=== PATIENT | female | born 1975 | race Caucasian/White ===

== ENCOUNTER 2020-02-28 10:25 | Outpatient (CLI) | payer OTHER, SELFPAY ==
--- NOTE | ~2020-02-28 | XR_ITS ---
XR barium swallow DATE: 02/28/2020 11:11 INDICATION: Dysphagia. Esophageal motility disorder. TECHNIQUE: Fluoroscopy and rapid sequence spot radiographs of the esophagus during swallowing. 2.3 minutes fluoroscopy time 13.757 DAP COMPARISON: None FINDINGS: There is normal deglutition. No stricture, mucosal fold thickening, ulceration, intraluminal mass lesion or diverticulum of the es ophagus. Small sliding hiatal hernia. With the patient recumbent there are tertiary contractions of the esophagus and ineffective to and f ro propulsion of the contrast material, consistent with history of esophageal motility disorder. IMPRESSION: Esophageal motility disorder with ineffective to and fro limited movement of contrast mat erial and tertiary contractions in the recumbent position Small sliding hiatal hernia Reviewed, dictated and finalized at [facility] Reviewed, dictated and finalized at [facility]. IMPRESSION: Esophageal motility disorder with ineffective to and fro limited mo vement of contrast material and tertiary contractions in the recumbent position Small sliding hiatal hernia
== END 2020-02-28 10:26 | disposition home or self-care (01) ==
LOC: ANHIMG 10:34
PROVIDERS: PCP Family Medicine; Visit Provider Internal Medicine Gastroenterology
DX: R13.10 Dysphagia, unspecified (principal); K44.9 Diaphragmatic hernia without obstruction or gangrene; K22.8 Other specified diseases of esophagus
CPT/HCPCS: 74220

== ENCOUNTER 2024-01-18 11:29 | Outpatient (CLI) | payer OTHER, SELFPAY ==
[2024-01-18 12:23] LABS: Basophils Absolute Auto 0.1 K/mm3 (0.0-0.1); Basophils Percent Auto 1.3 % (0.2-1.2); Eosinophils Absolute Auto 0.5 K/mm3 (0-0.3); Hematocrit 33.6 % (37.0-47.0); Hemoglobin 9.5 g/dL (12.0-15.0); Immature Granulocyte Absolute 0.01 K/mm3 (0.00-0.031); Immature Granulocyte Percent A 0.2 % (0-0.5); Lymphocytes Absolute Auto 1.94 K/mm3 (0.9-3.2); Mean Corpuscular HGB Conc 28.3 g/dl (32-36); Mean Corpuscular Hemoglobin 21.1 pg (26-34); Mean Corpuscular Volume 74.5 fl (80-100); Mean Platelet Volume 9.9 fl (7.4-10.4); Monocytes Absolute Auto 0.3 K/mm3 (0.1-0.6); Monocytes Percent Auto 5.7 % (2.6-8.5); Neutrophils Absolute Auto 2.5 K/mm3 (1.3-6.7); Neutrophils Percent Auto 46.8 % (45.5-73.1); Platelet Count Result 290 k/mm3 (150-375); Red Blood Count 4.51 M/mm3 (4.2-5.4); Red Cell Distribution Width 16.4 % (11.5-14.5); White Blood Count 5.2 K/mm3 (4.5-10.0)
[2024-01-18 12:54] LABS: Anisocytosis 1+; Hypochromasia 1+; Microcytosis 1+ (NORMAL); Platelet Estimate Adequate (Adequate); Schistocytes Rare
== END 2024-01-18 11:30 | disposition home or self-care (01) ==
PROVIDERS: Visit Provider Obstetrics & Gynecology
DX: Z01.818 Encounter for other preprocedural examination (principal); D25.9 Leiomyoma of uterus, unspecified
CPT/HCPCS: 36415; 85025; 86850; 86900; 86901

== ENCOUNTER 2024-01-22 00:27 | Day surgery (SDC) | payer OTHER, SELFPAY ==
--- NOTE | 2024-01-15 15:35 | SUR.PREOP ---
Report to the Outpatient Waiting Room, entrance under the green pavilion located off [facility], at time 0730 on date 01/22/24. Planned Procedure Time: 0930.? Time changes happen often and if your time is changed the preop area will call you the afternoon before. - You and your visitor will be asked to self-screen and do not enter if you have any COVID symptoms. Please call surgeon if you need to reschedule. - A mask is optional within the hospital at this time. Patients may have clear liquids (water, carbonated beverages, clear teas, apple juice) until 3 hours prior to surgery with a maximum of 20 ounces. - No food from midnight until time of surgery and no smoking Take only the following medications with a SIP of water on the morning of surgery: MAY TAKE LEVOTHYROXINE, BACLAFEN, GABAPENTIN, AND EYE DROPS IF NEEDED DO NOT STOP ANY OF YOUR OTHER PRESCRIPTION MEDICATIONS PRIOR TO SURGERY EXCEPT THE FOLLOWING Medications to discontinue per physician PT STATED THAT DR SWIFT ASKED HER TO STOP ASPERIN 81, PLEASE FOLLOW DR MICHAEL INSTRUCTIONS. Date to take last dose PER DR MICHAEL OFFICE FOR ASPERIN 81 Please no make-up, nail congolese, hairspray, perfume, deodorant, or body powder the day of surgery.? No jewelry (including any body piercings) or valuables the day of surgery, leave them at home.? Please take a shower or bath the night before, or the morning of, surgery with an antibacterial soap.? Wear comfortable, loose fitting clothing.? Children are encouraged to wear pajamas. - Jewelry must be removed prior to entering the operating room.? Rings and piercings that are not removed may be cut off. - The hospital will not accept responsibility for valuables.? - Please leave all valuables, including medications, at home the day of surgery. If you are going home after surgery, a licensed emergency medical technician/driver must drive you home.? - NO public transportation without another adult if you receive anesthesia. - We recommend that an adult stay with you for 24 hours following discharge. - We also recommend that you do not drive, make important decision, drink alcoholic beverages, or take any drugs that were not prescribed by your health care provider for at least 24 hours after your discharge time. Follow any additional instructions given to you from your surgeon. Telephone instructions given to ANGEL FABIAN and asked if any additional questions and then verbalized understanding. Patient advised to call surgeon office or pre surgery nurse liaison [phone] if any additional questions.
[2024-01-15 16:12] VITALS: BMI 34.8
--- NOTE | 2024-01-19 13:22 | PM.IMHP ---
H&P: HPI History of Present Illness Date/Time: 01/19/24 13:22 Chief Complaint: Pelvic pain/uterine fibroids/excessive heavy bleeding Narrative: 48-year-old female with known fibroids and severe pelvic pain excessive irregular bleeding refractory to medical therapy admitted for robotic hysterectomy bilateral salpingectomy. Risks and benefits reviewed including but not exclusive of , aspiration pneumonia, bleeding, transfusion, perforation injury to bowel, bladder, ureters, or other internal organs with need for open laparotomy. She received the [employer] handout entitled hysterectomy as well as the [place] [facility] handout. She had all questions answered. She asked to proceed PMF Past Medical History Medical History Arthritis Depression GERD (gastroesophageal reflux disease) Obesity Peripheral neuropathy Social History Social History Smoking status: Never smoker Alcohol intake: current Living arrangements: with family Meds Home Medications and Allergies Home Medications Medication Instructions Recorded Confirmed Type aspirin 81 mg tablet,delayed 81 mg PO DAILY 01/15/24 01/15/24 History release baclofen 10 mg tablet 10 mg PO BID 01/15/24 01/15/24 History diclofenac sodium 1 % topical gel 1 inch topical PRN PRN Inflammation 01/15/24 01/15/24 History fluticasone propionate 50 50 mcg intranasal POST-TRANSFUSION 01/15/24 01/15/24 History mcg/actuation nasal spray,suspension gabapentin 300 mg capsule 300 mg PO TID 01/15/24 01/15/24 History gabapentin 600 mg tablet 600 mg PO TID 01/15/24 01/15/24 History levothyroxine 75 mcg tablet 75 mcg PO DAILY 01/15/24 01/15/24 History lifitegrast 5 % eye drops in a 1 drp EACH EYE DAILY 01/15/24 01/15/24 History dropperette (Xiidra) prednisolone acetate 1 % eye 1 drp EACH EYE DAILY 01/15/24 01/15/24 History drops,suspension Allergies Allergy/AdvReac Type Severity Reaction Status Date / Time morphine [From Astramorph-PF] Allergy Unknown Vomiting Verified 01/15/24 14:57 Exam Const: General: cooperative, healthy appearing, comfortable and overweight Orientation/consciousness: oriented to person, oriented to place and oriented to time HENMT: Head: normal to inspection Resp: Effort & Inspection: normal respiratory effort Cardio: Rate: regular rate Rhythm: regular rhythm Heart sounds: S1 normal heart sound present and S2 normal heart sound present GI: Inspection: normal to inspection : External Female Exam: normal external appearance Speculum Exam - Vagina: normal appearance of the vagina Speculum Exam - Cervix: normal appearance of the cervix Bimanual exam- vagina & uterus: enlarged and Uterine tenderness Bimanual Exam- Adnexa, other: normal adnexae Assessment and Plan Assessment and plan (1) Enlarged uterus: Code(s): N85.2 - Hypertrophy of uterus Status: Acute (2) Uterine fibroid: Code(s): D25.9 - Leiomyoma of uterus, unspecified Status: Acute (3) Excessive bleeding: Code(s): R58 - Hemorrhage, not elsewhere classified Status: Acute Assessment and Plan: Robotic total vaginal hysterectomy and bilateral salpingectomy
[2024-01-22] VITALS (10 sets, daily range): BP systolic 102–122; BP diastolic 49–75; PULSE 68–100; RESP 12–18; TEMP 36.3–36.7; O2SAT 91–100; BMI 35.4
--- NOTE | 2024-01-22 06:41 | WPDHPUPDATE1 ---
History and Physical Update Update Date/Time: 01/22/24 06:41 History and Physical has been reviewed, including an updated exam of the patient. There are NO changes in the patient's condition. Risks, benefits, and alternatives have been discussed and questions answered. Patient agrees to proceed with procedure.
--- NOTE | 2024-01-22 07:30 | P.PNAN_ITS ---
Anes - Initial Pre Proc Eval Procedure: Operation Date: 01/22/24 09:30 Proposed Procedures p Robotic Assisted Total Vaginal Hysterectomy, Bilateral Salpingectomy - Moises Pearson MD Date/Time: 01/22/24 07:30 Surgeon: Moises Pearson MD Pre Op Diagnosis: uterine fibroids, pelvic pain, dysmennorhea Patient Data Age: 48 Gender: F Height: 1.59 m Weight: 88.45 kg Allergies Allergy/AdvReac Type Severity Reaction Status Date / Time morphine [From Astramorph-PF] Allergy Unknown Vomiting Verified 01/22/24 07:52 Home Medications Medication Instructions Recorded Confirmed Type aspirin 81 mg tablet,delayed 81 mg PO DAILY 01/15/24 01/22/24 History release baclofen 10 mg tablet 10 mg PO BID 01/15/24 01/22/24 History diclofenac sodium 1 % topical gel 1 inch topical PRN PRN Inflammation 01/15/24 01/15/24 History fluticasone propionate 50 50 mcg intranasal POST-TRANSFUSION 01/15/24 01/15/24 History mcg/actuation nasal spray,suspension gabapentin 300 mg capsule 300 mg PO TID 01/15/24 01/22/24 History gabapentin 600 mg tablet 600 mg PO TID 01/15/24 01/15/24 History levothyroxine 75 mcg tablet 75 mcg PO DAILY 01/15/24 01/22/24 History lifitegrast 5 % eye drops in a 1 drp EACH EYE DAILY 01/15/24 01/15/24 History dropperette (Xiidra) prednisolone acetate 1 % eye 1 drp EACH EYE DAILY 01/15/24 01/15/24 History drops,suspension hydrocodone 5 mg-acetaminophen 325 1 tablet PO Q4H PRN pain #30 tabs 01/22/24 Rx mg tablet Patient hx anesthesia problems: none Family hx anesthesia problems: none Results Review: All pre-operative results and documents have been reviewed as part of the pre- operative evaluation. [facility] Past Medical History Medical History (Updated 01/22/24 @ 07:31 by Bro Richmond DO) Arthritis CVA (cerebral vascular accident) left hand weakness - 01/2022 Depression GERD (gastroesophageal reflux disease) Obesity Peripheral neuropathy Surgical History Surgical History (Updated 01/22/24 @ 07:31 by Bro Richmond DO) S/P patent foramen ovale closure Social History Social History Smoking status: Never smoker Alcohol intake: current Living arrangements: with family Esau Mercer Final PreProcedure Day of Procedure 01/22/24 07:30 Patient weight: obese Heart: regular rate and rhythm Lungs: clear to auscultation Airway: Mallampati scale class II Neurological: alert and oriented Last oral intake: >/= 8 hours ASA classification: III Emergent: no Anesthetic plan: proceed Anesthesia type and monitoring: general ETT and standard monitoring Results Review: All pre-operative results and documents have been reviewed as part of the pre-operative evaluation. Informed Consent: The patient's anesthetic plan and its attendant risks and benefits were discussed with the patient/family/POA. Questions were solicited and answers provided to the satisfaction of the patient/family/POA.
[2024-01-22] MEDS: LACTATED RINGERS 1,000 ML 30 ML IV CONT ×2 (08:25→11:29)
[2024-01-22] MEDS: ACETAMINOPHEN 500 MG TABLET 1000 MG PO (08:33)
[2024-01-22] MEDS: KETOROLAC 15 MG/ML VIAL (*BKC) IV PUSH (08:34)
[2024-01-22] MEDS: ceFAZolin 2 GM/D5W 50 ML 2 GM/50 ML BAG IVPB (09:05)
--- NOTE | 2024-01-22 10:07 | W.PM.PROC2 ---
Procedure Note - Detailed Date of Procedure 01/22/24 Pre-op Diagnosis uterine fibroids, pelvic pain, dysmennorhea Post-op Diagnosis Same Procedure Performed robotic total vaginal directly bilateral salpingectomy Surgeon Moises Pearson MD Anesthesia General Indications 48-year-old female with excessive heavy bleeding and pelvic pain Findings enlarged uterus. Tubes status post tubes with tubal ligation. Normal-appearing ovaries Description of Procedure the patient was prepped draped normal sterile fashion placed in dorsal lithotomy position. Excellent general trach anesthesia weighted speculum placed in posterior fornix vagina. Anterior lip of the cervix grasped with single-tooth tenaculum. Uterus sounded to 12cm. Serial dilatation with fragmented dilators performed followed by passes the 10. JESS and the 2. 0.5 cold cup. Next the 16 Romanian catheter placed in bladder draining clear urine. The weighted speculum the single-tooth removed and the gloves were changed. A suprapubic the local incision made the Veress needle passed in the abdomen. Abdomen filled with CO2 gas 15mmHg. The 8mm trocar advanced in the abdomen. Downside visualized. No injury seen. Gas reattached. Patient placed in Trendelenburg. Right left lateral quadrant incisions made. 8Mm trocars advanced under direct visualization assuring no injury. The right upper quadrant incision made the 8mm trocar advanced under direct visualization assuring no injury. The robot was docked. Attention was turned the counseling case manager. Anteriorly the left round ligament was grasped, burned, cut. Anterior bladder flap formed by sharply dissecting peritoneum and reflecting bladder caudally away from the cervix uterus the opposite which was clamped burned cut. Next the fallopian tube was were noted to be bisected bilaterally. The proximal stump was sharply dissected away left attached to its origin. The distal portion was incised passed off through the right upper quadrant port. A similar fashion on the right the fallopian tube was sharply dissected away from the ovary. The distal portion passed off to the right upper quadrant proximal portion left attached to utero-ovarian ligament on left was skeletonized to conserve left ovary. This was clamped burned, cut brought to the level previously cut round ligament. A similar fashion conserving the right ovary, the right utero-ovarian ligament was clamped, burned, cut and brought to the level of previously cut round ligament. The cardinal broad ligaments were skeletonized on the left clamping burning cutting and hugging the sub cervix uterus until the large tortuous veins could be an vessels were seen on the left. These were individually clamped, burned, cut. In similar fashion on the right the cardinal broad ligaments were serially skeletonized clamping burning cutting and until the uterine vessels could be seen on the right these vessels were then clamped, burned, cut. Blanching the uterus was noted and a colpotomy incision made. Cervix uterus and tubes removed through the vagina. The vagina then closed with continuous running 0V lock from lateral edge to lateral edge back to midline. Irrigation undertaken to clear and hemostasis was assured the raw surface areas sprinkled with Montgomery term. The robot was undocked. The gas removed from the abdomen. The upper the trocars removed the incisions closed with 4 Monocryl glue. Patient was awakened went to recovery in satisfactory condition. All sponge, needle, instrument counts were correct. There were no immediate complications Estimated Blood Loss 25 Drains No Packing No Pathology Yes Complications No immediate complications Condition Stable Disposition PACU
--- NOTE | 2024-01-22 10:13 | PM.DS ---
DS: Admitting Diagnosis Discharge Date 01/23/2024 Admitting Diagnosis excessive bleeding/ enlarged uterus/uterine fibroid DS: Discharge Diagnosis Discharge Diagnosis (1) Excessive bleeding: Code(s): R58 - Hemorrhage, not elsewhere classified Status: Acute (2) Uterine fibroid: Code(s): D25.9 - Leiomyoma of uterus, unspecified Status: Acute (3) Enlarged uterus: Code(s): N85.2 - Hypertrophy of uterus Status: Acute DS: Summary Hospital Course Reason for hospitalization: patient was admitted for robotic hysterectomy and bilateral salpingectomy on 01/22/2024. Hospital Course: The patient's hospital course. Remained afebrile she was up, voiding without difficulty eating regular ambulating, generally without complaints. Time Spent with Patient Time attestation: Total time spent providing and/or coordinating discharge services: Exam Const: General: cooperative, healthy appearing and comfortable Nutritional Appearance: average body habitus Orientation/consciousness: oriented to person, oriented to place and oriented to time Resp: Effort & Inspection: normal respiratory effort Cardio: Rate: regular rate Rhythm: regular rhythm Heart sounds: S1 normal heart sound present and S2 normal heart sound present GI: Inspection: normal to inspection and incision ( Clean dry and intact) DS: Data Data Completed and Pending Pending studies at discharge: Pending at discharge 01/22/24 09:35 Surgical [PTH] Routine Discharge Plan Discharge Patient Disposition: Home, Self-Care Stand Alone Forms: General Discharge Instructions Follow-up/Referrals: Moises Velarde MD [Physician] - Discharge Medications: New hydrocodone-acetaminophen 5-325 mg tablet 1 tablet PO Q4H PRN (Reason: pain) Qty: 30 0RF No Action gabapentin 600 mg tablet 600 mg PO TID aspirin 81 mg tablet,delayed release (DR/EC) 81 mg PO DAILY levothyroxine 75 mcg tablet 75 mcg PO DAILY prednisolone acetate 1 % drops,suspension 1 drp EACH EYE DAILY baclofen 10 mg tablet 10 mg PO BID gabapentin 300 mg capsule 300 mg PO TID fluticasone propionate 50 mcg/actuation spray,suspension 50 mcg INTRANASAL POST-TRANSFUSION Xiidra 5 % dropperette 1 drp EACH EYE DAILY diclofenac sodium 1 % gel 1 inch TOPICAL PRN PRN (Reason: Inflammation)
[2024-01-22] MEDS: fentaNYL CITRATE INJ (*CRX) 100 MCG/2 ML VIAL 25 MCG IV PUSH ×5 (10:58→11:16)
[2024-01-22] MEDS: IBUPROFEN 600 MG TABLET PO ×2 (12:36→23:38)
[2024-01-22] MEDS: SIMETHICONE 80 MG TAB.CHEW PO ×2 (12:36→16:41)
[2024-01-22] MEDS: DEXTROSE 5%/LACTATED RINGERS 1,000 ML 125 ML IV CONT (12:37)
[2024-01-22] MEDS: HYDROcodone/acetaminophen (*CRX) 5-325 MG TABLET 1 TAB PO ×2 (12:37→16:42)
[2024-01-22] MEDS: DOCUSATE SODIUM 100 MG CAPSULE PO (16:41)
[2024-01-22] MEDS: HYDROcodone/acetaminophen (*CRX) 10-325 MG TABLET 1 TAB PO ×2 (19:35→23:38)
[2024-01-23 04:50] VITALS: BP 106/53; PULSE 69; RESP 16; TEMP 36.8; O2SAT 99
[2024-01-23] MEDS: HYDROcodone/acetaminophen (*CRX) 5-325 MG TABLET 1 TAB PO ×2 (04:50→08:22)
[2024-01-23 04:59] LABS: Basophils Percent Auto 0.3 % (0.2-1.2); Hematocrit 30.5 % (37.0-47.0); Hemoglobin 9.2 g/dL (12.0-15.0); Immature Granulocyte Absolute 0.05 K/mm3 (0.00-0.031); Immature Granulocyte Percent A 0.4 % (0-0.5); Lymphocytes Absolute Auto 0.83 K/mm3 (0.9-3.2); Lymphocytes Percent Auto 7.4 % (18.3-44.2); Mean Corpuscular HGB Conc 30.2 g/dl (32-36); Mean Corpuscular Hemoglobin 22.3 pg (26-34); Mean Platelet Volume 9.6 fl (7.4-10.4); Monocytes Absolute Auto 0.4 K/mm3 (0.1-0.6); Monocytes Percent Auto 3.4 % (2.6-8.5); Neutrophils Percent Auto 88.5 % (45.5-73.1); Platelet Count Result 281 k/mm3 (150-375); Red Blood Count 4.12 M/mm3 (4.2-5.4); Red Cell Distribution Width 16.5 % (11.5-14.5); White Blood Count 11.3 K/mm3 (4.5-10.0)
[2024-01-23 05:22] LABS: Anisocytosis 1+; Hypochromasia 1+; Microcytosis 1+ (NORMAL); Ovalocytes 1+; Platelet Estimate Adequate (Adequate); Schistocytes Rare
[2024-01-23] MEDS: LEVOTHYROXINE SODIUM 75 MCG TABLET PO (06:38)
[2024-01-23] MEDS: ONDANSETRON INJ 4 MG/2 ML VIAL IV PUSH (06:48)
[2024-01-23 07:00] VITALS: BP 102/52; PULSE 62; RESP 16; TEMP 36.4; O2SAT 100
[2024-01-23] MEDS: SIMETHICONE 80 MG TAB.CHEW PO (08:22)
[2024-01-23] MEDS: DOCUSATE SODIUM 100 MG CAPSULE PO (08:22)
[2024-01-23] MEDS: IBUPROFEN 600 MG TABLET PO (08:22)
[2024-01-23] MEDS: ENOXAPARIN 40 MG/0.4 ML SYRINGE SUB-Q (08:22)
--- NOTE | 2024-01-23 09:56 | WPDPN ---
Progress Note: A&P Assessment and Plan (1) Status post vaginal hysterectomy: Code(s): Z90.710 - Acquired absence of both cervix and uterus Status: Acute (2) Post-op pain: Code(s): G89.18 - Other acute postprocedural pain Status: Acute Plan Discharge home today. Subjective Date/time seen: 01/23/24 09:13 Interval history: Liliana is postop day 1 from total laparoscopic assisted vaginal hysterectomy. She was doing well. Tolerating a regular diet without nausea. Denies dizziness with ambulation. Reports very small amount light pink discharge. Denies having any vaginal clots. pain well controlled with p.o. medications. Review of Systems Review of Systems: All systems reviewed & are unremarkable except as noted in HPI and below Exam Const: General: cooperative, no acute distress and awake Orientation/consciousness: patient oriented x3 Limitations: no limitations Eyes: General: appearance normal, both eyes and all related structures Neck: Neck: supple Resp: Effort & Inspection: normal respiratory effort and able to speak in complete sentences Auscultation: clear to auscultation bilaterally Cardio: Rate: regular rate Peripheral pulses: Peripheral pulses 2+ throughout GI: Inspection: normal to inspection Auscultation: normal bowel sounds : General: Yes bladder normal to palpation Skin: General skin exam: normal color Other: Incisions C/D/I Neuro: General: patient oriented x3 Cognition (Neuro): normal cognition Speech: normal speech Extrem: General: normal to inspection Psych: Appearance: grossly normal Mental Status: mental status grossly normal Speech and movement: Normal speech and movement present Affect: normal affect Attitude: cooperative Thought process: Normal thought process present Objective Data Vital Signs Vital Signs: Vital Signs - 24 hr 01/22/24 10:15 01/22/24 10:30 01/22/24 10:45 Temperature 98.1 F Pulse Rate 100 81 73 Respiratory Rate 12 14 14 Blood Pressure 102/49 L 106/65 109/72 Pulse Oximetry 95 94 100 Oxygen Delivery Simple Face Mask Simple Face Mask Simple Face Mask Oxygen Flow Rate 8 8 8 01/22/24 11:00 01/22/24 11:15 01/22/24 11:28 Temperature Pulse Rate 78 71 70 Respiratory Rate 14 12 12 Blood Pressure 112/75 116/63 116/63 Pulse Oximetry 100 91 100 Oxygen Delivery Room Air Room Air Nasal Cannula Oxygen Flow Rate 2 01/22/24 12:15 01/22/24 19:35 01/22/24 19:35 Temperature 97.4 F L 97.7 F Pulse Rate 68 71 Respiratory Rate 16 18 Blood Pressure 105/54 L 113/60 Pulse Oximetry 100 100 Oxygen Delivery Room Air Oxygen Flow Rate 01/22/24 23:30 01/22/24 23:30 01/23/24 04:50 Temperature 97.8 F 98.2 F Pulse Rate 86 69 Respiratory Rate 18 16 Blood Pressure 107/63 106/53 L Pulse Oximetry 99 99 Oxygen Delivery Room Air Oxygen Flow Rate 01/23/24 04:50 01/23/24 06:40 01/23/24 07:00 Temperature 97.6 F Pulse Rate 62 Respiratory Rate 16 Blood Pressure 102/52 L Pulse Oximetry 100 Oxygen Delivery Room Air Room Air Oxygen Flow Rate Intake/Output Intake/Output: Intake & Output 01/20/24 01/21/24 01/22/24 01/23/24 23:59 23:59 23:59 23:59 Intake Total 2150 240 Output Total 1850 Balance 300 240 Meds/Results Medications: Active Medications Generic Name Dose Route Start Last Admin Trade Name Freq PRN Reason Stop Dose Admin Hydrocodone Bitart/Acetaminophen 1 tab 01/22/24 11:30 01/23/24 08:22 Hydrocodone/Acetaminophen (*Crx) 5-325 Mg Tablet PO 1 tab Q3H PRN Administration Pain Rated 5 or Less Hydrocodone Bitart/Acetaminophen 1 tab 01/22/24 11:30 01/22/24 23:38 Hydrocodone/Acetaminophen (*Crx) 10-325 Mg Tablet PO 1 tab Q3H PRN Administration Pain Rated 6 or Greater Docusate Sodium 100 mg 01/22/24 17:00 01/23/24 08:22 Docusate Sodium 100 Mg Capsule PO 100 mg BID HANG Administration Enoxaparin Sodium 40 mg 01/23/24
--- NOTE | 2024-01-23 10:36 | WPDANESPN ---
Anes - Prog Note Post-Op Date/Time: 01/23/24 10:36 Cardiovascular status: normal Respiratory status: normal Airway patency: baseline Mental status: baseline Post-Op hydration status: normal Vital Signs: Last Vital Signs Temp 97.6 F 01/23/24 07:00 Pulse 62 01/23/24 07:00 Resp 16 01/23/24 07:00 BP 102/52 L 01/23/24 07:00 Pulse Ox 100 01/23/24 07:00 O2 Del Method Room Air 01/23/24 06:40 O2 Flow Rate 2 01/22/24 11:28 Pain Score (VAS): 2 I/O: Intake & Output 01/22/24 01/23/24 01/23/24 23:59 07:59 15:59 Intake Total 1000 240 Output Total 1800 Balance -800 240 Laboratory Tests 01/23/24 04:50 01/23/24 04:50 WBC 11.3 H RBC 4.12 L Hgb 9.2 L Hct 30.5 L MCV 74.0 L MCH 22.3 L D MCHC 30.2 L RDW 16.5 H Plt Count 281 MPV 9.6 Immature Gran % (Auto) 0.4 Neut % (Auto) 88.5 H Lymph % (Auto) 7.4 L [place] % (Auto) 3.4 Eos % (Auto) 0.0 Baso % (Auto) 0.3 Lymph # (Auto) 0.83 L [place] # (Auto) 0.4 Eos # (Auto) 0.0 Baso # (Auto) 0.0 Abs Immat Gran (auto) 0.05 H Absolute Neuts (auto) 10.0 H Absolute Nucleated RBC 0.000 Nucleated RBC % 0.0 Platelet Estimate Adequate Hypochromasia 1+ Anisocytosis 1+ Microcytosis 1+ Ovalocytes 1+ Schistocytes Rare Post-procedural complaints: none Patient Feedback: Patient satisfied with anesthetic care.
== END 2024-01-23 10:10 | disposition home or self-care (01) ==
LOC: ANHSURGERY 07:27 → ANHOB2 12:04
PROVIDERS: Visit Provider Obstetrics & Gynecology
PROC: (CPT 58552; principal; 2024-01-22 09:30)
DX: N93.9 Abnormal uterine and vaginal bleeding, unspecified (principal); N85.2 Hypertrophy of uterus; N94.6 Dysmenorrhea, unspecified; R10.2 Pelvic and perineal pain; K21.9 Gastro-esophageal reflux disease without esophagitis; F32.A Depression, unspecified; G62.9 Polyneuropathy, unspecified; E66.9 Obesity, unspecified; Z68.35 Body mass index [BMI] 35.0-35.9, adult; Z79.82 Long term (current) use of aspirin
CPT/HCPCS: 58552; S2900; 36415; 85025; 86850; 86900; 86901; 88307; 99199; A9270; J0330; J0690; J1100; J1170; J1650; J1885; J2250; J2405; J2704; J3010; J7030; J7120; J7121

== ENCOUNTER 2024-06-02 00:08 | Day surgery (SDC) | payer OTHER, SELFPAY ==
[2024-05-13 11:25] VITALS: BMI 34.2
[2024-06-02 09:48] VITALS: BP 117/82; PULSE 81; RESP 18; TEMP 36; O2SAT 100; BMI 33.8
--- NOTE | 2024-06-02 10:11 | P.PNAN_ITS ---
Anes - Initial Pre Proc Eval Procedure: Operation Date: 06/02/24 11:00 Proposed Procedures p Colonoscopy - Phani Shelby MD Date/Time: 06/02/24 10:11 Surgeon: Phani Shelby MD Pre Op Diagnosis: Personal hx of colon polyps Patient Data Age: 48 Gender: F Height: 1.6 m Weight: 86.7 kg Last Vital Signs Temp 36.0 C L 06/02/24 09:48 Pulse 81 06/02/24 09:48 Resp 18 06/02/24 09:48 BP 117/82 06/02/24 09:48 Pulse Ox 100 06/02/24 09:48 O2 Del Method Room Air 06/02/24 09:48 Allergies Allergy/AdvReac Type Severity Reaction Status Date / Time morphine (From Astramorph-PF) AdvReac Unknown Vomiting Verified 06/02/24 10:04 regadenoson (From Lexiscan) AdvReac Hypertensio Verified 06/02/24 10:04 n Home Medications ?Medication ?Instructions ?Recorded ?Confirmed ?Type aspirin 81 mg tablet,delayed 81 mg PO DAILY 01/15/24 06/02/24 History release baclofen 10 mg tablet 10 mg PO BID 01/15/24 06/02/24 History diclofenac sodium 1 % topical gel 1 inch topical PRN PRN Inflammation 01/15/24 06/02/24 History fluticasone propionate 50 50 mcg intranasal POST-TRANSFUSION 01/15/24 06/02/24 History mcg/actuation nasal spray,suspension gabapentin 300 mg capsule 300 mg PO TID 01/15/24 06/02/24 History gabapentin 600 mg tablet 600 mg PO TID 01/15/24 06/02/24 History levothyroxine 75 mcg tablet 75 mcg PO DAILY 01/15/24 06/02/24 History lifitegrast 5 % eye drops in a 1 drp EACH EYE DAILY 01/15/24 06/02/24 History dropperette (Xiidra) prednisolone acetate 1 % eye 1 drp EACH EYE DAILY 01/15/24 06/02/24 History drops,suspension etanercept 50 mg/mL (1 mL) 50 mg subcut WEEKLY 05/13/24 06/02/24 History subcutaneous pen injector (Enbrel SureClick) Patient hx anesthesia problems: none Family hx anesthesia problems: none Results Review: All pre-operative results and documents have been reviewed as part of the pre- operative evaluation. FORMERLY [facility], [facility] Past Medical History Medical History CVA (cerebral vascular accident) left hand weakness - 01/2022 Depression Obesity Arthritis GERD (gastroesophageal reflux disease) Peripheral neuropathy Surgical History Surgical History (Updated 06/02/24 @ 10:12 by Moises Ruffin MD) H/O: hysterectomy S/P patent foramen ovale closure Social History Social History Smoking status: Never smoker Alcohol intake: current Substance use type: does not use Living arrangements: with family Spiritual care concerns: No Anes - Eval Final PreProcedure Day of Procedure 06/02/24 10:11 Patient weight: obese Heart: regular rate and rhythm Lungs: clear to auscultation Airway: Mallampati scale class II Neurological: alert and oriented Last oral intake: >/= 8 hours ASA classification: III Emergent: no Anesthetic plan: proceed Anesthesia type and monitoring: general GIVS and standard monitoring Results Review: All pre-operative results and documents have been reviewed as part of the pre- operative evaluation. Informed Consent: The patient's anesthetic plan and its attendant risks and benefits were discussed with the patient/family/POA. Questions were solicited and answers provided to the satisfaction of the patient/family/POA.
[2024-06-02] MEDS: LACTATED RINGERS 1,000 ML 150 ML IV CONT (10:20)
--- NOTE | 2024-06-02 10:52 | P.HP_ITS ---
H&P: HPI History of Present Illness Date/Time: 06/02/24 10:52 Chief Complaint: History of colon polyps Narrative: The patient has a history of colonic polyps, the last colonoscopy was in 2019, it was an adenoma. Review of Systems Review of Systems: All systems reviewed & are unremarkable except as noted in HPI and below [facility] Past Medical History Medical History (Updated 06/02/24 @ 10:53 by Phani Shelby MD) CVA (cerebral vascular accident) left hand weakness - 01/2022 Depression Obesity Arthritis GERD (gastroesophageal reflux disease) Peripheral neuropathy Surgical History Surgical History (Updated 06/02/24 @ 10:12 by Moises Ruffin MD) H/O: hysterectomy S/P patent foramen ovale closure Social History Social History Smoking status: Never smoker Alcohol intake: current Substance use type: does not use Living arrangements: with family Spiritual care concerns: No Meds Home Medications and Allergies Home Medications ?Medication ?Instructions ?Recorded ?Confirmed ?Type aspirin 81 mg tablet,delayed 81 mg PO DAILY 01/15/24 06/02/24 History release baclofen 10 mg tablet 10 mg PO BID 01/15/24 06/02/24 History diclofenac sodium 1 % topical gel 1 inch topical PRN PRN Inflammation 01/15/24 06/02/24 History fluticasone propionate 50 50 mcg intranasal POST-TRANSFUSION 01/15/24 06/02/24 History mcg/actuation nasal spray,suspension gabapentin 300 mg capsule 300 mg PO TID 01/15/24 06/02/24 History gabapentin 600 mg tablet 600 mg PO TID 01/15/24 06/02/24 History levothyroxine 75 mcg tablet 75 mcg PO DAILY 01/15/24 06/02/24 History lifitegrast 5 % eye drops in a 1 drp EACH EYE DAILY 01/15/24 06/02/24 History dropperette (Xiidra) prednisolone acetate 1 % eye 1 drp EACH EYE DAILY 01/15/24 06/02/24 History drops,suspension etanercept 50 mg/mL (1 mL) 50 mg subcut WEEKLY 05/13/24 06/02/24 History subcutaneous pen injector (Enbrel SureClick) Allergies Allergy/AdvReac Type Severity Reaction Status Date / Time morphine (From Astramorph-PF) AdvReac Unknown Vomiting Verified 06/02/24 10:04 regadenoson (From Lexiscan) AdvReac Hypertensio Verified 06/02/24 10:04 n Vital Signs Vital Signs - 24 hr 06/02/24 09:48 Temperature 96.8 F L Pulse Rate 81 Respiratory Rate 18 Blood Pressure 117/82 Pulse Oximetry 100 Oxygen Delivery Room Air Exam Const: General: cooperative and healthy appearing Resp: Effort & Inspection: normal respiratory effort and able to speak in complete sentences Auscultation: clear to auscultation bilaterally Cardio: Rate: regular rate Rhythm: regular rhythm GI: Inspection: normal to inspection GI Palp: No No hepatosplenomegaly present Auscultation: normal bowel sounds Rectal Exam: deferred Skin: General skin exam: normal color Psych: Appearance: grossly normal Mental Status: mental status grossly normal Assessment and Plan Assessment and plan (1) History of colonic polyps: Code(s): Z86.0100 - Personal history of colon polyps, unspecified Status: Acute Assessment and Plan: The patient is deemed a good candidate for the procedure. Consent signed. Will proceed.
[2024-06-02 11:18] VITALS: BP 97/65; PULSE 71; RESP 20; O2SAT 100
[2024-06-02 11:28] VITALS: BP 93/63; PULSE 79; RESP 22; O2SAT 100
[2024-06-02 11:38] VITALS: BP 111/77; PULSE 73; RESP 16; O2SAT 100
== END 2024-06-02 11:42 | disposition home or self-care (01) ==
PROVIDERS: Visit Provider Internal Medicine Gastroenterology
PROC: 0DJD8ZZ Inspection of Lower Intestinal Tract, Via Natural or Artificial Opening Endoscopic (ICD-10-PCS; CPT 45378; principal; 2024-06-02 11:00)
DX: Z12.11 Encounter for screening for malignant neoplasm of colon (principal); K64.8 Other hemorrhoids; K21.9 Gastro-esophageal reflux disease without esophagitis; F32.A Depression, unspecified; G62.9 Polyneuropathy, unspecified; M19.90 Unspecified osteoarthritis, unspecified site; E66.9 Obesity, unspecified; Z68.33 Body mass index [BMI] 33.0-33.9, adult; Z79.82 Long term (current) use of aspirin; Z79.85 Long-term (current) use of injectable non-insulin antidiabetic drugs; Z98.890 Other specified postprocedural states; Z86.0100 Personal history of colon polyps, unspecified; Z86.79 Personal history of other diseases of the circulatory system
CPT/HCPCS: 45378; J2003; J2704; J7120

== ENCOUNTER 2024-07-18 10:30 | Outpatient (CLI) | payer OTHER, SELFPAY ==
[2024-07-18 11:00] VITALS: PULSE 124; O2SAT 87
--- OUTSIDE RECORDS SUMMARY | 2024-07-18 11:51 | XMS_ITS | Referral Summary ---
Author Organization [facility] Address [address] [place] [id number] Care Team Providers Care Sound Person Name Role Phone Joanne Alvarez MD Primary Care Provider [phone] Allergies Active Allergy Reactions Criticality Noted Date Comments Morphine (Pf) Nausea & Vomiting Low 04/18/2019 Morphine Nausea only,Vomiting Medium Reaction: N, V, Unclassified Drug Nausea only,Vomiting Medium 04/18/20 19 Reaction: N, V, Medications celecoxib (CeleBREX) 200 mg capsule 0 Active oxybutynin XL (DITROPAN-XL) 10 mg 24 hr tablet 0 Active gabapentin (NEURONTIN) 300 mg capsule Take 2 capsules (600 mg total) by mouth 3 (three) times a day 540 capsule 2 0 Active baclofen (LIORESAL) 10 mg tablet 1 Active buPROPion XL (WELLBUTRIN XL) 150 mg 24 hr tablet 1 Active levothyroxine (SYNTHROID) 75 mcg tablet 1 Active mometasone (ELOCON) 0.1 % solution 1 Active triamcinolone (KENALOG) 0.1 % ointment 1 Active gabapentin (NEURONTIN) 600 mg tablet 1 Active acetaminophen (TYLENOL) 500 mg tablet 4 Active Humira,CF, 40 mg/0.4 mL syringe kit 4 Active aspirin 81 mg enteric coated tablet 4 Active erythromycin (ILOTYCIN) ophthalmic ointment 4 Active prednisoLONE acetate (PRED FORTE) 1 % ophthalmic suspension Administer 1 drop into both eyes 2 (two) times a day 5 mL 1 4 Active fluticasone propionate (FLONASE) 50 mcg/actuation nasal spray Administer 1 spray into each nostril daily 1 each 1 4 Active Active Problems Problem Noted Date Diagnosed Date Dysesthesia of multiple sites 04/28/2021 Chronic pain syndrome 04/28/2021 High thyroid stimulating hormone (TSH) level Overview (08/29/2016): TSH elevation Social History Tobacco Use Types Packs/Day Years Used Date Smoking Tobacco: Never Smokeless Tobacco: Never Alcohol Use Standard Drinks/Week Comments Not Currently 0 (1 standard drink = 0.6 oz pur e alcohol) rarely drinks socially AUDIT-C Answer Date Recorded Frequency of Alcohol Consumption Never 04/18/2019 Average Number of Drinks Not on file 019 Frequency of Binge Drinking Not on file 03/26 Comments Unknown Sex and Gender Information Value Date Recorded Sex Assigned at Not on file Legal Sex 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 Gender Identity Not on file Sexual Orientation Not on file Last Filed Vital Signs Vital Sign Reading Time Taken Comments Blood Pressure 128/86 04/29/2021 3:07 PM CONFERENCE SERVICES MANAGER Pulse 79 04/29/2021 3:07 PM CONFERENCE SERVICES MANAGER Temperature 36.4 C (97.6 F) 04/29/2021 3:07 PM CONFERENCE SERVICES MANAGER Respiratory Rate 18 02/07/2020 9:44 AM CDT Oxygen Saturation 99% 04/28/2019 1:45 PM CONFERENCE SERVICES MANAGER Inhaled Oxygen Concentration - - Weight 89.4 kg (197 lb 1.5 oz) 11/18/2022 11:04 AM CDT Height 162.6 cm (5' 4 ) 11/18/2022 11:04 AM CDT Body Mass Index 33.83 11/18/2022 11:04 AM CDT Plan of Treatment Not on file Procedures Procedure Name Priority Date/Time Associated Diagnosis Comments SCREENING MAMMOGRAM BILATERAL W SCOTT Schedule Routine, Read Routine (OP Routine) 02/10/2023 2:31 PM CDT Screening mammogram, encounter for from Last 3 Months or Most Recently Relevant to Health Maintenance Results * Screening Mammogram Bilateral W Scott (02/10/2023 2:31 PM CDT) Anatomical Region Laterality Modality Breast Bilateral Mammography Narrative 02/11/2023 1:44 PM CDT Mammogram Technique: Bilateral Digital Breast Tomosynthesis, Bilateral C-view 2D Screening mammogram. Views obtained: bilateral craniocaudal and bilateral mediolateral oblique. Computer Aided Detection was performed. Mammogram Findings: The present examination has been compared to a prior imaging study performed at [facility] on 07/07/2019. There are scattered areas of fibroglandular density. There is no suspicious abnormality in either breast. Impression: There is no mammographic evidence of malignancy. Annual screening mammography is recommended. OVERALL FINAL ASSESSMENT: BI-RADS CATEGORY 1: Negative. Procedure Note Raquel Hamilton MD - 02/11/2023 Mammogram Technique: Bilateral Digital Breast Tomosynthesis, Bilateral C-view 2D Screening mammogram. Views obtained: bilateral craniocaudal and bilateral mediolateral oblique. Computer Aided Detection was performed. Mammogram Findings: The present examination has been compared to a prior imaging study performed at [facility] on07/07/2019. There are scattered areas of fibroglandular density. There is no suspicious abnormality in either breast. Impression: There is no mammographic evidence of malignancy. Annual screening mammography is recommended. OVERALL FINAL ASSESSMENT: BI-RADS CATEGORY 1: Negative. us Self Screening Mammogram IMG MAMMO PROCEDURES Fi nal Result from Last 3 Months or Most Recently Relevant to Health Maintenance Insurance [facility] H[facility]/PPO Address: [address] [address] [place] [address] [facility] H[facility]/PPO Address: [address] [address] [place] [address] [facility] H[facility]/PPO Address: [facility] [address] [place] [address] Care Teams Sound Person Relationship Specialty Start Date End Date Joanne Alvarez MD PCP - General Family Medicine 04/29/21
--- OUTSIDE RECORDS SUMMARY | 2024-07-18 11:51 | XMS_ITS | Clinical Summary ---
Author Organization [facility] Address [address] [place] [phone] Care Team Providers Care Auto Transport Driver Name Role Phone Joanne Alvarez MD Primary Care Provider Allergies Active Allergy Reactions Criticality Noted Date [...] hormone (TSH) level Overview (08/29/2016): TSH elevation Surgical History Surgery Date Site/Laterality Comments SECTION section SECTION x 5 SHOULDER ARTHROSCOPY W/ SUPERIOR LABRAL ANTERIOR POSTERIOR LESION REPAIR 08/23/2008 - 09/21/2008 Left ANTERIOR CRUCIATE LIGAMENT REPAIR 05/25/2009 - 05/24/2010 Right IR INJECTION ARTHROGRAM SI JOINT RIGHT INCLUDES IMAGING GUIDANCE 04/28/2019 Right Medical History Medical History Date Comments Hx Other Medical L shoulder surg quang Hx Other Medical R ACL repair Arthritis Kidney stone Migraines Allergic rhinitis Peripheral neuropathy hands and feet Dysphagia Family History Medical History Relation Name Comments Scoliosis Daughter Diabetes Father Heart disease Father Diabetes Sister Hypertension Sister Stroke Sister Relation Name Status Comments Daughter Father Sister Social History Tobacco Use Types Packs/Day Years [...] on file Legal Sex Female 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 Gender Identity Not on file Sexual Orientation Not on file Obstetrics History Last Filed Vital Signs Vital Sign Reading Time Taken Comments Blood Pressure 128/86 04/29/2021 3:07 PM BLADDER CHANGER Pulse 79 04/29/2021 3:07 PM BLADDER CHANGER Temperature 36.4 C (97.6 F) 04/29/2021 3:07 PM BLADDER CHANGER Respiratory Rate 18 02/07/2020 9:44 AM CDT Oxygen Saturation 99% 04/28/2019 1:45 PM BLADDER CHANGER Inhaled Oxygen Concentration - - Weight 89.4 kg (197 lb 1.5 oz) 11/18/2022 11:04 AM CDT Height 162.6 cm (5' 4 ) 11/18/2022 11:04 AM CDT Body Mass Index 33.83 11/18/2022 11:04 AM CDT Plan of Treatment Health Maintenance Due Date Last Done Comments Cervical Cancer Screening 1974 Colon Cancer Screening-Colonoscopy 1974 Depression Screening 1974 Hepatitis C Screening 1974 Hepatitis B Screening 1992 Regular Well Visit/Exam 18-64 1992 DTaP/Tdap/Td Vaccine (1 - Tdap) 08/27/2017 08/26/2017 Influenza Vaccine (#1) 2024 Breast Cancer Screening-Mammogram 02/11/2024 02/10/2023, 07/07/2019 Pneumococcal vaccine <65 Aged Out No longer eligible based on patient's age to complete this topic Procedures Procedure Name Priority Date/Time Associated Diagnosis [...] to a prior imaging study performed at [facility] on 07/07/2019. There are [...] to a prior imaging study performed at [facility] on07/07/2019. There are scattered areas of fibroglandular density. There is no suspicious abnormality in either breast. Impression: There is no mammographic evidence of malignancy. Annual screening mammography is recommended. OVERALL FINAL ASSESSMENT: BI-RADS CATEGORY 1: Negative. us Self Screening Mammogram IMG MAMMO PROCEDURES Fi nal Result from Last 3 Months or Most Recently Relevant to Health Maintenance Insurance [facility] MEDICAL [facility] HMO/PPO Address: [facility] [id number] [place] [address] [facility] MEDICAL [facility] HMO/PPO Address: [id number] [place] [address] [facility] MEDICAL [facility] HMO/PPO Address: [id number] [place] [address] Care Teams Auto Transport Driver Relationship Specialty Start Date End Date Joanne Alvarez MD PCP - General Family Medicine 04/29/21
--- OUTSIDE RECORDS SUMMARY | 2024-07-18 11:52 | XMS_ITS | Data Portability ---
Author Organization [place] - [facility], Main Office Address [address] [place] [id number] Assessment Encounter Date Assessment Date Assessment LastModified by Organization Details LastModified Time 06/09/2024 06/09/2024 Patient tolerated treatment well today. Patient did need to press the emergency button to stop the decompression today to use the restroom quickly. Treatment Plan: It is recommended that the patient begin therapeutic withdrawal from chiro care as tolerated to determine effectiveness of care. Patient to receive spinal adjustments, manual therapy, and lumbar decompression. Patient Education Materials: None Imaging: Thoracic and Lumbar X-ray taken on 02/19/23 after a fall showed no new fractures. Mild T12 compression fracture that she believes is from an old injury Co-Treatment: MT (12/03/21). PCP: Joanne Alvarez MD Transplant Surgeon Neurologist Urologist Soil Surveyor GI Market Development Executive BH: Recommended f/u with PCP due to BH concerns during RoS. See RoS section from 08/03/23 note. Counselor: Anuradha Cunha Contraindication s: Previous Stroke. Device implanted near RIGHT SI for bladder control. Instrument adjusting to C/S only. T12 compression fracture. Patient Treatment Preference: Prefers AP T/S Visit Count: 10/03 [email or web address] Not available 06/09/2024 11:56:08 06/09/2024 06/09/2024 Assessment and Plan Assessment: patient tolerated session well Plan: My area of focus will be on what the patient presented with. Recommendation: 8 of 10 massage Follow Up Visit: 3-4 weeks Not available 06/09/2024 10:29:11 06/30/2024 06/30/2024 Assessment and Plan Assessment: patient tolerated session well Plan: My area of focus will be on what the patient presented with. Recommendation: 9 of 10 massage Follow Up Visit: 3 weeks [email or web address] Not available 06/30/2024 11:46:21 07/06/2024 07/06/2024 OF NOTE pt has had multiple MRIs, CTs and Xrays of smaller joints CXR all in [facility] EHR none of the shoulder Visit took full 40 min to update current management of her chronic conditions and additional prep time of 25 min to review chart as pt has not been seen routinely for a year... THE FOLLOWING IS ASSESSMENT AND PLAN FOR TODAY [email or web address] Not available 07/06/2024 13:15:57 07/11/2024 07/11/2024 Patient tolerated treatment well today. Treatment Plan: It is recommended that the patient begin therapeutic withdrawal from chiro care as tolerated to determine effectiveness of care. Patient to receive spinal adjustments, manual therapy, and lumbar decompression. Patient Education Materials: None Imaging: Thoracic and Lumbar X-ray taken on 02/19/23 after a fall showed no new fractures. Mild T12 compression fracture that she believes is from an old injury Co-Treatment: MT (12/03/21). PCP: Joanne Alvarez MD Transplant Surgeon Neurologist Urologist Soil Surveyor GI Market Development Executive BH: Recommended f/u with PCP due to concerns during RoS. See RoS section from 08/03/23 note. Counselor: Anuradha Cunha Contraindication s: Previous Stroke. Device implanted near RIGHT SI for bladder control. Instrument adjusting to C/S only. T12 compression fracture. Patient Treatment Preference: Prefers AP T/S Visit Count: 11/03 [email or web address] Not available 07/11/2024 10:50:40 Plan of Treatment Reminders Order Date Submit Date Provider Last Modified By Organization Details Last Modified Time Details Appointments InPer son; Nupur schultz (60 min) 2024 09:30A M Krystian Chery MT Not available Not available Not available InPer son; Chiro pract ic F/U 2024 09:30A M DAVE MALAVE DC Not available Not available Not available InPer son; Decom press ion Table 2024 09:30A M Decompression Table Not available Not available Not available Lab None recor ded. Referral None recor ded. Procedures None recor ded. Surgeries None recor ded. Imaging None recor ded. Medication Orders None recor ded. Patient Targets Encounter Date Encounter Id Patient Goals Patient Target Last Modified By Organization Details Last Modified Time 06/09/2024 [id number] termite renewal inspector goal of HEP Compliance Compliance with HEP provided by DC. Compliance with presenting for care as recommended by DC Not available Not available Not available [facility] goal of Pain Maintain improvements gained through previous chiro care. Not available Not available Not available termite renewal inspector goal of Pain During Activity keep pain levels down during daily activities Not available Not available Not available 07/11/2024 [id number] termite renewal inspector goal of HEP Compliance Compliance with HEP provided by DC. Compliance with presenting for care as recommended by DC Not available Not available Not available [facility] goal of Pain Maintain improvements gained through previous chiro care. Not available Not available Not available [facility] goal of Pain During Activity keep pain levels down during daily activities Not available Not available Not available Patient Instructions Encounter Date Encounter Id Patient Instructions Last Modified By Organization Details Last Modified Time 06/09/2024 [id number] Home Care: HEP from PT Not available 06/09/2024 11:25:11 07/11/2024 [id number] Home Care: HEP from PT [email or web address] Not available 07/11/2024 10:02:37 Reason for Referral None Reported. Problems Name Problem SNOMED Code Status Onset Date Resolution Date Notes Provider Name and Address Organization Details Recorded Time Neck pain 77440872 Active 2022 Vik [place]ves, [place] - [facility] 3 12:13:23 Low back pain 254474002 Active 2022 Vik [place], [place] - [facility] 3 12:13:36 Cervical segmenta l dysfunct ion 938160239 Active [address] [place] [place] [address], [place], [address] , [place] [facility] 3 09:26:15 Somatic dysfunct ion of pelvic region 927478876 Active 2022 [address] [place] [address], [place], [address] , [place] [facility] 3 09:26:35 Thoracic back pain 010458330 Active 2022 Vik aceves[place] [facility] 12/28/202 3 09:22:49 Preventi ve monitori ng Active Immuniza tions Flu Vaccine Declines Covid: declines Tdap 08/26/2017 Shingrix (Age 50+) age 50 PneumoVa x/PSV23 (age 65+, Smoker, Chronic Dz) age 65 PSV15 (age 65+, Chronic Dz) age 65 consider Hepatiti s B (Diabete s/Travel ) 02/14 recommen ded Hepatiti s A (Power Switchboard Operator/ Travel) 02/14 no Pap Smear/HP V: 03/19/18 ms sql developer--Dr Rajni gonzales Mammogra m: 01/2023 [facility] normal Colonosc opy: 02/2019 repeat 5 years b9 polyps -->due 2023 Dr Tl Herring Upper endoscop y: 02/2019 normal Lung cancer screen ( age > 55 & 30 pack yr hx): not applicab le/nonsm oker DEXA (age 65+, 50+ with RF): age 65, cpnsider age 50 AAA Screen: Not Indicate d Choleste rol: --06/17 T185 H 47 G 121 L116--> TG 388 L 116 off statin ( had meal b4 test) --12/14 T 175 H 48 G 114 L 106--> opted not to change dose or med (aware that her goal LDL is 70) --04/15 T190 H52 G172 L109 on statin due to CVA due to PFO --06/14 T 225 H 56 G 136 L 143 N 169 (worse than 07/2018) CV Risk Score 0.7% Hemoglob in A1c: 06/14 4.8--- 5.9 Hepatiti s C screen: 06/14 neg HIV screen: done during pregnanc ies neg STI screen (age less than 25 or with RF): not indicate d Other Labs: --12/14 TSH 2.85 --04/15 TSH 3.59 Ferritin 4 (last CBC here 10/2020 nl ferritin 10) --06/14 BMP Cr 0.75 GFR 96 K 4.2 TSH 6.83, Ft4 nlb12/fo late nl --07/2018 : CMP Cr 0.76 GFR 95 K 3.8 Ca 9.5, TSH 5.25 T4 normal, CBC, CRP, RF, KEVEN nl (old records) Joanne Alvarez MD [address], [place], [address] , [place] [facility] 4 10:26:43 Chronic low back pain 448013502 Active Joanne Alvarez MD [address], [place], [address] , [place] [facility] 4 09:58:55 Chronic neck pain 26314975199 07 Active 2023 -- 022 MRI [facility] ED visit : normal --11/13 CT Cspine ED: Mild DDD, mild to adv OA -- 1 C spine MRI: DJD C3-4, C5-6, both with left moderate foramina l narrowin g; mild disc bulge, mild right foramina l narrowin g C5-6, mild left foramina l narrowin g C6-7 (inciden tly mild to moderate disc bulges T3-5) --2020 complete d PT without much benefit, no progress ion in [facility] ent; seeing chiro helps minimize her pain, so contiues these sessions --[facility] C6-T1 Joanne Alvarez MD [address], [place], [address] , [place] [facility] 4 12:34:48 Under care of multiple provider s 97246043343 00 Active 2023 Rheumato logy: Vidhi Silver , MARILY/Purvi Bronson MD Pulm: Purvi Barraza or fax # [phone], Dr Jiang (new 2024 [place] provider ) ophthalm ology: Dr Darwin Campa, [place] [facility] Hand: [facility] [phone] Perdomo Neurolog ists (several ) Linda Fox, last one seen post CVA not seen since 2022 MS Neurolog ist: [place] [facility] Peggy Fingigi (No MS!) Pain Mngmt: (Several ) last one interven tional pain mgnt , 2024 Vick Webb Urologis t: Dedrick Ochoa MD Colorect al: Ian Valera MD Gastroen terology : Dr Jennings Gynecolo gy: Moises Pearson MD (not seen since ? 2022) Psycholo gist: Anuradha (counselor marriage and family ing) Cardiac Sx: MD Joanne Yepez MD [address], [place], [address] , [place] [facility] 5 13:02:24 Dyspnea 349411284 Active subjecti ve, normal lung/moiz st exams ref to pulmonol ogist by cardiolo gy after her PFO repair as continuo us concern SOB 07/17 seen by pulmonar y: suspec decondit ioning 06/26 to heart sx, chronic pain, and will check PFTs, walking sat study normal 07/19 new pulmonol ogist Joanne Alvarez MD [address], [place], [address] , [place] [facility] 5 13:11:29 Cerebrov ascular accident 609258096 Active 06/26 to PFO (01/2022) Joanne Alvarez MD [address], [place], [address] , [place] [facility] 4 10:08:06 Hypothyr oidism 33213205 Active 06/17 TSH nl no change meds Joanne Alvarez MD [address], [place], [address] , [place] [facility] 4 09:25:59 Chronic pain syndrome 693221248 Active 2006 back with intermit tent sciatica has had multiple MRIs , CT scans lspine, tspine, cspine hx of ESIs prior to 2019 hx of chronic opioid use but not dependen ce Joanne Alvarez MD [address], [place], [address] , [place] [facility] 4 09:55:37 Non-smok er 1838379 Active Joanne Alvarez MD [address], [place], [address] , [place] [facility] 4 09:55:55 Abnormal gait 71601300 Active 2009 + stable Joanne Alvarez MD [address], [place], [address] , [place] [facility] 4 09:57:05 Psoriati c arthriti s 228875104 Active --reest with new rheum 2021: treating for PSarthri tis --rheum labs normal per rheum: XRs of hands, wrists, feet, ankles, SI joints, chest did not reveal evidence of inflamma tory arthriti s --07/2018 : CBC, CRP, RF, KEVEN nl (old records) (has seen pain mgmt and rheumato logist ) - Joanne Alvarez MD [address], [place], [address] , [place] [facility] 4 10:11:22 Cervical radiculo jerry 54827163 Active 11/13 EMG LEFT arm +for Left CTS and Left ulnar neuropat hy (moderat e for both) --10/15 Cspine MRI C3-4 mod to severe, 5-6 mild to mod, 6-7 mild to mod, NTNarrow iwng correspo nding mild disc bulges and same regions with C7-T1 with 1-2 mm malignme n of spint patholog y severe Joanne Alvarez MD [address], [place], [address] , [place] [facility] 4 12:55:57 Overacti ve urinary bladder 753807551 Active urology manages Joanne Alvarez MD [address], [place], [address] , [place] [facility] 4 10:03:41 Polyp of colon 72770695 Active scope due 2023 Joanne Alvarez MD [address], [place], [address] , [place] [facility] 4 10:07:28 Arthriti s of spine 265011988 Active --10/15 C3-4 mod to severe, 5-6 mild to mod, 6-7 mild to mod, NTNarrow iwng correspo nding mild disc bulges and same regions with C7-T1 with 1-2 mm malignme n of spint patholog y severe --02/14 CT Lspine/T spine: no new findings (slighty reduced height of T12 vertebra l body was seen on 10/2021 CT spine and felt not to be acute at that time) --11/[address] C, T, L Spine: no signif changes -- 021 L-spine MRI: mild to mod L3-4 disc bulging, DJD, ligament ous hypertro phy=mild canal narrowin g, mild to mod B foramina l narrowin g; DJD L4-5 with mild circumfe rential spinal canal narrowin g; L5-S1 mild to mod B foramina l narrowin g -- 1 C spine MRI: DJD C3-4, C5-6, both with left moderate foramina l narrowin g; mild disc bulge, mild right foramina l narrowin g C5-6, mild left foramina l narrowin g C6-7 (inciden tally mild to moderate disc bulges T3-5) -11/2018 MRIs : all with mild spondylo sis; ----Cspn e: C6-T1 severe DJD, facet arthriti s, mild neurofor aminal B stenosis ; C5-6 moderate facet DJD; C5-7 mild central canal stenosis ----Tspi ne: T5-T7 central disc extrusio n, mild canal stenosis ----Lspi ne: L1-S1 mild to moderate DJD arthriti s, worse at L3-S1; L3-S1 neurofor aminal stenoses mild --09/2018 Lspine X-ray normal Joanne Alvarez MD [address], [place], [address] , [place] [facility] 4 12:40:36 History of dysphagi a [id number] 879324 Active followed by GI Dr Dick Alvarez MD [address], [place], [address] , [place] [facility] 4 10:11:42 Hyperlip idemia 50027914 Active 01/2024 LDL 116 TG 388 work on diet, off statin self d/noe 11/2023 (cardiol ogy ok with this) but statin indicate d due to stroke.. . Joanne Alvarez MD [address], [place], [address] , [place] [facility] 5 13:12:31 Frequent headache 035968260 Active Joanne Alvarez MD [address], [place], [address] , [place] [facility] 4 10:12:56 Ferritin level below referenc e range 790880247 Active 2023 normal CBC/h/h Joanne Alvarez MD [address], [place], [address] , [place] [facility] 5 13:11:45 Pain of left shoulder region Active 2023 Joanne Alvarez MD [address], [place], [address] , [place] [facility] 4 10:13:25 Carpal tunnel syndrome of left wrist 13133524589 9102 Active 10/2021 moderate L CTS on EMG; 11/14 ref to ortho 01/14 XRs B and MRI L: normal per radiolog ist, but per ortho [facility] tendinit is, Steroid inj, ref OT hand, 10/15 reports Bilatera l CTS sx 07/19 no longer seeing hand ortho Joanne Alvarez MD [address], [place], [address] , [place] [facility] 5 13:10:55 Urge incontin ence of urine 93661663 Active has Metronic Intersti m Implant --see notes from urology in EHR, pt given the followin g choices ----cont inue med manageme nt ----boto x injectio n ----nerv e stimulat or (pt opted for this Joanne Alvarez MD [address], [place], [address] , [place] - [facility] 4 11:17:36 History finding 977282602 Active Social history: Home environm ent: --Feels safe at home: yes --Marrie d: yes --Childr en: yes age 2- 19 years --Pets: 1 dog, 2 hamsters , bunny rabit, cat --Lives with: all members or immediat e family --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 [employer] --Diet: unrestri cted diet --Exerci se: walk --Caffei ne: no --Tobacc o use: no --Cigare ttes: no --Smokel ess tobacco: no --Alcoho l Use: yes occasion al Substanc e use: no Medical History: --knee pain OA mild --rectal bleeding /hemorrh oids --bronch itis/chr onic dyspnea (w/u nl) --planta r fascitis 08/2019 --spondy losis of spine C, T , L --mild hyperlip idemia --radicu lopathy B LE --ureter olithias is --low back pain, chronic --neck pain , chronic --dyspha jamshid, stable --CTS left --ulnar neuropat hy left --chroni c shoulder pain L>R --polyp colon Surgical History: --ACL tear Right --PCL ? --C-sect ion x5 --left shoulder surgery SLAP --right wrist surgery ganglion cyst sx Family History: --Mother : htn, not taking meds --Father : COPD, CHF, DM, 63 --Siblin gs: brother, sister: sister stroke at age 36, htn, DM --Grandp arents: -----Mat ernal: TIAs age 89 GM, Divertic ulitis GF -----Pat ernal: alcohols im GF and GM, mental disorder Sexual History: #Partner s: 1 --menarc he age: 12-13 --menopa use n/a --pregna ncies: # 5 -----com plicatio ns: failure to progress on those -----ob/ ms sql developer as above --histor y of STIs no Joanne Alvarez MD [address], [place], [address] , [place] [facility] 4 10:26:08 Serum blood tests Active 02/15 ESR, CMP, CRP nl TG 388 L 116 A1c 5.9 CBC hgb 10.8 hct 34.8 MCV 75 RDW 16 no change from last 2 checks 12/14 T 175 H 48 G 114 L 106 TSH 2.85 04/15 T190 H52 G172 L109 TSH 3.59 Ferritin 4 (last CBC here 10/2020 nl ferritin 10) Joanne Alvarez MD [address], [place], [address] , [place] [facility] 4 14:44:23 Pain in left arm 282938958 Active 2023 Missy Brooks [place] [address], [place], [address] , [place] - [facility] 4 13:21:39 Pain of left shoulder blade 633287023 Active 2023 Missy Brooks [place] [address], [place], [address] , [place] [facility] 4 13:21:54 Anemia 907686684 Active 06/26 to heavy periods Hgb 10.7 mcv 77 US pelvic pos for fibroid 02/15 CBC same but just had her hysterec darlene 01/22/24 Joanne Alvarez MD [address], [place], [address] , [place] [facility] 4 18:07:57 Ulnar neuropat hy of left arm 40611501221 9107 Active 2021 on EMG of 11/13, plus CTS moderate CTS/Ulna r neuro Joanne Alvarez MD [address], [place], [address] , [place] [facility] 4 18:05:49 Left upper quadrant pain 426976240 Active 2023 Missy Brooks [place] [address], [place], [address] , [place] [facility] 4 13:52:04 Somatic dysfunct ion of right upper extremit y 38361338219 580381 Active 2023 Yolanda Ar[address] [place] [address], [place], [address] , [place] [facility] 4 11:25:11 Rectal hemorrha ge 90718619 Completed 202009/10/2023 Rectal bleeding ; PROBABIL ITY: 0 Confir mation: Confirme d Annota tedDispl ay: Rectal bleeding Classif ication: Medical Not Available [facility] 4 15:53:10 History of cardiac surgery 047561473 Active 2022 Joanne Alvarez MD [address], [place], [address] , [place] [facility] 4 00:49:21 Lumbosac ral spondylo sis 204209876 Active 2022 Joanne Alvarez MD [address], [place], [address] , [place] [facility] 4 00:49:40 Osteoart hritis of ankle 739779493 Active 2022 Joanne Alvarez MD [address], [place], [address] , [place] [facility] 4 00:56:37 Nodule of lung 152736682 Active 01/2023 CT chest 4 mm calcifie d noduel in ant R lobe, small bulae posterio r left lobe--pt f/u with her pulmonol ogist Joanne Alvarez MD [address], [place], [address] , [place] [facility] 4 00:56:23 External hemorrho ids without complica tion 93905632 Active 2020 Joanne Alvarez MD [address], [place], [address] , [place] [facility] 4 00:49:13 Kidney stone 70390135 Completed 202009/10/2023 Nephroli thiasis; PROBABIL ITY: 0 Confir mation: Confirme d Annota tedDispl ay: Nephroli thiasis Classifi cation: Medical Not Available [facility] 4 15:53:13 Thyroid stimulat ing hormone level above referenc e range 638616027 Completed 202209/10/2023 Raised TSH level; PROBABIL ITY: 0 SENSIT IVITY: 0.0 Conf irmation : Confirme d cancel Reason: Annotat edDispla y: Elevated TSH Clas sificati on: Medical Lifecycl eDateTim e: 18:17:04 +00:00 Not Available [facility] 4 15:53:13 Tenosyno vitis of right hand 55555024366 87029 Completed 202209/10/2023 Tenosyno vitis of right hand; PROBABIL ITY: 0 SENSIT IVITY: 0.0 Conf irmation : Confirme d cancel Reason: Annotat edDispla y: Tenosyno vitis of right hand Cla ssificat ion: Medical Lifecycl eDateTim e: 22:30:19 +00:00 Not Available [facility] 4 15:53:14 Magnetic resonanc e imaging 360034791 Completed 202209/10/2023 MRI; PROBABIL ITY: 0 Confir mation: Confirme d Annota tedDispl ay: MRI Clas sificati on: Medical Not Available [facility] 4 15:53:15 Spinal stenosis of lumbar region 98335679 Completed 202209/10/2023 Spinal stenosis of lumbar region; PROBABIL ITY: 0 SENSIT IVITY: 0.0 Conf irmation : Confirme d cancel Reason: Annotat edDispla y: Lumbar spinal stenosis Classif ication: Medical Lifecycl eDateTim e: 22:26:47 +00:00 S jazmin stenosis of lumbar region; PROBABIL ITY: 0 Confir mation: Confirme d Annota tedDispl ay: Spinal stenosis of lumbar region C lassific ation: Medical; Start Date : 06/18/19 21 Not Available [facility] 4 15:53:15 Magnetic resonanc e imaging of brain abnormal 765493955 Active 2020 seen by neurolog y, not MS , nonspeci fic white matter change Joanne Alvarez MD [address], [place], [address] , [place] [facility] 4 00:50:12 Lumbosac ral spondylo sis without myelopat hy 39658012 Active 2022 Joanne Alvarez MD [address], [place], [address] , [place] [facility] 4 00:49:47 Psoriasi s of scalp 429944684 Active 2022 Joanne Alvarez MD [address], [place], [address] , [place] [facility] 4 00:50:49 Depressi ve disorder 26441298 Completed 202209/10/2023 Depressi ve disorder ; PROBABIL ITY: 0 SENSIT IVITY: 0.0 Conf irmation : Confirme d cancel Reason: Annotat edDispla y: Depressi on Class ificatio n: Medical Lifecycl eDateTim e: 16:18:58 +00:00 Not Available [facility] 4 15:53:16 Tenosyno vitis of left hand 38741258370 92934 Active 2022 Joanne Alvarez MD [address], [place], [address] , [place] [facility] 4 00:51:21 Tension- type headache 396804499 Completed 202009/10/2023 Tension headache ; PROBABIL ITY: 0 Confir mation: Confirme d Annota tedDispl ay: Tension headache Classif ication: Medical Not Available [facility] 4 15:53:17 Internal hemorrho ids 51527887 Active 2020 banded by colorect al Joanne Alvarez MD [address], [place], [address] , [place] [facility] 4 00:52:50 Abnormal ity of nail tissue 958152016 Active 2020 irregula r fingerna ils Joanne Alvarez MD [address], [place], [address] , [place] [facility] 4 14:44:48 Spinal stenosis in cervical region 79190168 Completed 202209/10/2023 Spinal stenosis in cervical region; PROBABIL ITY: 0 SENSIT IVITY: 0.0 Conf irmation : Confirme d cancel Reason: Annotat edDispla y: Cervical stenosis of spine Cl assifica tion: Medical Lifecycl eDateTim e: 22:26:50 +00:00 S jazmin stenosis in cervical region; PROBABIL ITY: 0 Confir mation: Confirme d Annota tedDispl ay: Spinal stenosis in cervical region C lassific ation: Medical; Start Date : 06/18/19 21 Not Available [facility] 4 15:53:18 Low back pain 800995233 Completed 202109/10/2023 Low back pain; PROBABIL ITY: 0 SENSIT IVITY: 0.0 Conf irmation : Confirme d cancel Reason: Annotat edDispla y: Low back pain Cla ssificat ion: Medical Lifecycl eDateTim e: 16:37:27 +00:00 Not Available [facility] 4 15:53:18 Urge incontin ence of urine 87983230 Completed 202109/10/2023 Urge incontin ence of urine; PROBABIL ITY: 0 SENSIT IVITY: 0.0 Conf irmation : Confirme d cancel Reason: Annotat edDispla y: Urge incontin ence Cla ssificat ion: Medical Lifecycl eDateTim e: 16:37:49 +00:00 U rge incontin ence of urine; PROBABIL ITY: 0 SENSIT IVITY: 0.0 Conf irmation : Confirme d Annota tedDispl ay: Urinary incontin ence,urg e Classi fication : Medical Lifecycl eDateTim e: 17:34:00 +00:00; Start Date : 06/18/19 21 Not Available [facility] 4 15:53:19 Spondylo sis without myelopat hy 81804454 Active 2020 Joanne Alvarez MD [address], [place], [address] , [place] [facility] 4 00:51:11 Atrial septal defect 50832500 Active 2021 repaired Joanne Alvarez MD [address], [place], [address] , [place] - [facility] 4 00:47:06 Spinal arthriti s deforman s [id number] Active 2022 Joanne Alvarez MD [address], [place], [address] , [place] [facility] 4 00:51:06 Dyspnea on exertion 91024639 Active 2022 decondit ioning Joanne Alvarez MD [address], [place], [address] , [place] [facility] 4 00:48:59 Cervical spondylo sis 356390355 Active 2022 Joanne Alvarez MD [address], [place], [address] , [place] [facility] 4 00:53:18 Spinal stenosis of thoracic region [id number] Completed 202209/10/2023 Spinal stenosis of thoracic region; PROBABIL ITY: 0 SENSIT IVITY: 0.0 Conf irmation : Confirme d cancel Reason: Annotat edDispla y: Spinal stenosis of thoracic region C lassific ation: Medical Lifecycl eDateTim e: 22:29:07 +00:00 S jazmin stenosis of thoracic region; PROBABIL ITY: 0 Confir mation: Confirme d Annota tedDispl ay: Spinal stenosis of thoracic region C lassific ation: Medical; Start Date : 06/18/19 21 Not Available [facility] 4 15:53:22 Shoulder pain 01860887 Active 2021 Joanne Alvarez MD [address], [place], [address] , [place] [facility] 4 00:51:01 Bilatera l osteoart hritis of knees [id number] 9107 Active 2020 Joanne Alvarez MD [address], [place], [address] , [place] [facility] 4 00:48:13 Radicula r syndrome of lower limbs 11522345 Active 2020 Joanne Alvarez MD [address], [place], [address] , [place] [facility] 4 00:50:57 Backache 841180143 Active 2021 Joanne Alvarez MD [address], [place], [address] , [place] [facility] 4 14:44:45 Obesity 603979018 Active 2018 Joanne Alvarez MD [address], [place], [address] , [place] [facility] 4 00:50:29 Strain of neck muscle 342412330 Active 2021 Joanne Alvarez MD [address], [place], [address] , [place] [facility] 4 00:51:16 Segmenta l and somatic dysfunct ion 044391642 Active 2021 Joanne Alvarez MD [address], [place], [address] , [place] [facility] 4 00:51:42 Strain of knee 88890693662 3 Active 2023 DAVE MALAVE DC [address], [place], [address] , [place] [facility] 4 11:29:30 Pain of left hip joint 29663996810 9100 Active 2023 Vik Boland ketan, [place] - [facility] 4 15:12:40 Pain in right hip joint 70698638669 9102 Active 2023 Vik Krystian aceves, [place] - [facility] 4 15:12:45 Uterine leiomyom a 60077019 Active 2023 on pelvic US 2023, ref her to ms sql developer as possible cause of her chronic anemia and heavy periods ?had hysterct wilbur Joanne Alvarez MD [address], [place], [address] , [place] [facility] 5 13:14:05 Blood glucose outside referenc e range 498023152 Active 2023 A1c 5.9 01/2024 Joanne Alvarez MD [address], [place], [address] , [place] [facility] 4 14:46:12 Pain of right knee region 89423486809 4105 Active 2023 DAVE MALAVE DC [address], [place], [address] , [place] [facility] 4 11:48:54 Prematur e atrial contract ion 384529366 Active 2024 Joanne Alvarez MD [address], [place], [address] , [place] [facility] 5 13:17:15 Problem Notes None recorded. Procedures Surgical History Date Name Laterality Status Provider Name and Address Organization Details Recorded Time 08/26/19 Manual Therapy completed Yolanda Arce DC [address], [place], [address], [facility] 08/26/2023 11:26:58 08/26/19 Decompression completed Yolanda Arce DC [address], [place], [address], [facility] 08/26/2023 11:07:39 08/26/19 24 50568: Chiropractice Manipulative Treatment (CMT) Extraspinal 1 or more regions completed Yolanda Arce DC [address], [place], [address], [facility] 08/26/2023 11:07:39 08/26/19 34555: Massage completed Vik Boland [facility] 08/26/2023 11:08:36 08/17/19 Manual Therapy completed DAVE MALAVE DC [address], [place], [address], [facility] 08/17/2023 10:12:55 08/17/19 Decompression completed DAVE MALAVE DC [address], [place], [address], [facility] 08/17/2023 10:12:55 08/17/19 24 43106: Chiropractice Manipulative Treatment (CMT) Extraspinal 1 or more regions completed DAVE MALAVE DC [address], [place], [address], [facility] 08/17/2023 10:12:55 08/17/19 24 95883: Chiropractic Manipulative Treatment (CMT) Spinal 3-4 regions completed DAVE MALAVE DC [address], [place], [address], [facility] 08/17/2023 10:12:55 08/12/19 24 55370: Massage completed Vik Boland [facility] 08/12/2023 10:44:10 08/03/19 Manual Therapy completed DAVE MALAVE DC [address], [place], [address], [facility] 08/03/2023 10:33:32 03/11/20 24 Decompression completed DAVE MALAVE DC [address], [place], [address], [place] [facility] 08/03/2023 10:33:31 08/03/19 24 [id number]: Chiropractice Manipulative Treatment (CMT) Extraspinal 1 or more regions completed DAVE MALAVE DC [address], [place], [address], [place] [facility] 08/03/2023 10:33:31 08/03/19 24 43959: Chiropractic Manipulative Treatment (CMT) Spinal 3-4 regions completed DAVE MALAVE DC [address], [place], [address], [place] [facility] 08/03/2023 15:30:59 07/29/19 23272: [facility] [place] [facility] 07/29/2023 09:34:37 07/20/19 Manual Therapy completed Yolanda Arce DC [address], [place], [address], [place] [facility] 07/20/2023 10:57:36 07/20/19 24 Decompression completed Yolanda Arce DC [address], [place], [address], [place] [facility] 07/20/2023 10:57:36 07/20/19 24 87442: Chiropractice Manipulative Treatment (CMT) Extraspinal 1 or more regions completed Yolanda Arce DC [address], [place], [address], [place] [facility] 07/20/2023 10:57:36 07/20/19 24 80277: Chiropractic Manipulative Treatment (CMT) Spinal 3-4 regions completed Yolanda Arce DC [address], [place], [address], [place] [facility] 07/20/2023 10:57:36 07/06/19 24 Manual Therapy completed DAVE MALAVE DC [address], [place], [address], [place] [facility] 07/06/2023 11:34:03 07/06/19 24 Decompression completed DAVE MALAVE DC [address], [place], [address], [place] [facility] 07/06/2023 11:34:03 07/06/19 24 33588: Chiropractice Manipulative Treatment (CMT) Extraspinal 1 or more regions completed DAVE MALAVE DC [address], [place], [address], [facility] 07/06/2023 11:34:03 07/06/19 24 13500: Chiropractic Manipulative Treatment (CMT) Spinal 3-4 regions completed DAVE MALAVE DC [address], [place], [address], [facility] 07/06/2023 11:34:03 07/06/19 24 43410: Massage completed Missy Brooks MT [address], [place], [address], [facility] 07/06/2023 13:51:51 06/23/19 24 Manual Therapy completed DAVE MALAVE DC [address], [place], [address], [facility] 06/23/2023 09:56:37 06/23/19 24 Decompression completed ADVE MALAVE DC [address], [place], [address], [facility] 06/23/2023 09:56:37 06/23/19 24 33883: Chiropractice Manipulative Treatment (CMT) Extraspinal 1 or more regions completed DAVE MALAVE DC [address], [place], [address], [facility] 06/23/2023 09:56:37 06/23/19 24 54738: Chiropractic Manipulative Treatment (CMT) Spinal 3-4 regions completed DAVE MALAVE DC [address], [place], [address], [facility] 06/23/2023 10:15:05 06/18/19 24 56779: Massage completed Missy Brooks [place] [address], [place], [address], [facility] 06/18/2023 13:21:28 06/08/19 24 Manual Therapy completed DAVE MALAVE DC [address], [place], [address], [facility] 06/08/2023 10:03:15 06/08/19 24 Decompression completed DAVE MALAVE DC [address], [place], [address], [place] [facility] 06/08/2023 10:25:02 06/08/19 24 17595: Chiropractice Manipulative Treatment (CMT) Extraspinal 1 or more regions completed DAVE MALAVE DC [address], [place], [address], [place] [facility] 06/08/2023 10:03:15 06/08/19 24 22440: Chiropractic Manipulative Treatment (CMT) Spinal 3-4 regions completed DAVE MALAVE DC [address], [place], [address], [place] [facility] 06/08/2023 10:03:15 06/04/19 24 62985: Massage completed Missy Brooks MT [address], [place], [address], [place] [facility] 06/04/2023 11:49:25 05/28/19 24 Manual Therapy completed DAVE MALAVE DC [address], [place], [address], [place] [facility] 05/28/2023 10:03:31 05/28/19 24 Decompression completed DAVE MALAVE DC [address], [place], [address], [place] [facility] 05/28/2023 10:32:58 05/28/19 24 14947: Chiropractice Manipulative Treatment (CMT) Extraspinal 1 or more regions completed DAVE MALAVE DC [address], [place], [address], [place] [facility] 05/28/2023 10:03:31 05/28/19 24 31370: Chiropractic Manipulative Treatment (CMT) Spinal 3-4 regions completed DAVE MALAVE DC [address], [place], [address], [place] [facility] 05/28/2023 10:03:31 05/21/20 23 91855: Massage completed Vik Boland [place] [facility] 05/21/2023 09:22:07 05/11/20 23 Manual Therapy completed Yolanda Arce DC [address], [place], [address], [facility] 05/11/2023 10:45:31 05/11/20 23 Decompression completed Yolanda Arce DC [address], [place], [address], [facility] 05/11/2023 09:24:18 05/11/20 23 33662: Chiropractice Manipulative Treatment (CMT) Extraspinal 1 or more regions completed Yolanda Arce DC [address], [place], [address], [facility] 05/11/2023 10:45:11 05/11/20 23 98234: Chiropractic Manipulative Treatment (CMT) Spinal 3-4 regions completed Yolanda Arce DC [address], [place], [address], [facility] 05/11/2023 09:25:18 04/29/20 23 83124: Massage completed [facility] 04/29/2023 10:56:23 Imaging Results None recorded. Procedure Notes None recorded. Medical Equipment None Reported. Allergies Allergen ID Allergen Name Allergen Category Reaction Reaction Severity Criticality Documentation Date Start Date Code Code System Note Provider Name and Address Organization Details Recorded Time 552304 morphine sulfate medicatio n Not available Not available Not available 06/16/2023 27949 RxNorm Joanne Alvarez MD [address], [place], [place], [address] [place] [address], [facility] 4 10:17:50 [id number] Lexiscan medicatio n Not available Not available [facility] 07/06/2024 13330 1 RxNorm sever e htn when injec alysia for stres s test Joanne Alvarez MD [address], [place], [place], [address] [place] [address] 4, [facility] 5 12:07:34 [id number] regadenos on medicatio n Not available Not available Not available 07/06/2024 65072 2 RxNorm same as mariposa can which is brand name Joanne Alvarez MD [address], [place], [address], [facility] 5 12:08:00 Medications Name Sig Start Date Stop Date Status Note LastModified by Organization Details LastModified Time celecoxib 200 mg capsule TAKE ONE CAPSULE BY MOUTH ONCE DAILY 02/19 completed StopType : Physicia n Stop Juan Manuel Mason umber: [id number] T otalRefi lls: 1 CSASch edule: 0 active _status_ dt_tm: 08/30/2021 11:38:15 AM Not Available Not Available Not Available amoxicill in 500 mg capsule 06/16 completed Not Available Not Available Not Available atorvasta tin 40 mg tablet 03/18 completed Disconti nueDate: 03/18/20 1:09:00 PM Disco ntinueTy pe: User Manual DC StopT ype: Physicia n Stop Juan Manuel Robertna jonestionGlen umber: [id number] T otalRefi lls: 0 Consta ntIndica tor: Yes CSAS chedule: 0 active _status_ dt_tm: 4:30:56 PM Not Available Not Available Not Available atorvasta tin 80 mg tablet Take 1 tablet every day by oral route at bedtime for 90 days. 02/21 completed Not Available Not Available Not Available oxybutyni n chloride ER 15 mg tablet,ex tended release 24 hr 1 tab(s) Oral daily 01/02 completed Disconti nueDate: 11:22:47 AM Disco ntinueTy pe: User Manual DC StopT ype: Physicia n Stop Juan Manuel jonestionGlen umber: [id number] S cheduled PRN: No Total Refills: 5 Consta ntIndica tor: Yes CSAS chedule: 0 active _status_ dt_tm: 08/30/2021 11:37:11 AM Not Available Not Available Not Available gabapenti n 600 mg tablet TAKE ONE TABLET BY MOUTH 3 (THREE) TIMES DAILY 2024 active Not Available Not Available Not Avai lable hydrocort isone-pra moxine 2.5 %-1 % rectal cream 1 appl MO tid,Inst r:use BID to TID up to 7 days; apply a thin film 11/19 completed StopType : Physicia n Stop Juan Manuel chavarriaN umber: [id number] S cheduled PRN: No Total Refills: 0 Consta ntIndica tor: Yes CSAS chedule: 0 active _status_ dt_tm: 2:22:00 PM Not Available Not Available Not Available aspirin 325 mg tablet 1 tab(s) Oral daily 07/28 completed Disconti nueDate: 07/28/2022 10:21:59 AM Disco ntinueTy pe: User Manual DC StopT ype: Physicia n Stop Juan Manuel chavarriaN umber: [id number] T otalRefi lls: 0 Consta ntIndica tor: Yes CSAS chedule: 0 active _status_ dt_tm: 03/18/20 1:10:08 PM Not Available Not Available Not Available hydrocodo ne 5 mg-acetam inophen 325 mg tablet TAKE 1 TABLET BY MOUTH EVERY 3 HOURS NEEDED FOR MODERATE PAIN (4-6) 02/21 completed Not Available Not Available Not Available prednison e 5 mg tablet active Not Available Not Available Not Available leflunomi de 10 mg tablet 06/16 completed Not Available Not Available Not Available clopidogr el 75 mg tablet 06/18 completed Not Available Not Available Not Available aspirin 81 mg tablet,de layed release active Not Available Not Available Not Available leflunomi de 20 mg tablet 10/14 completed Not Available Not Available Not Available acetamino phen 500 mg tablet active Not Available Not Available No t Available triamcino lone acetonide 0.1 % topical cream 1 appl Topical bid,Inst r:apply a thin film ; to affected area for up to 10 days then off for 2-3 weeks then repeat as needed 02/22 completed StopType : Physicia n Stop Juan Manuel chavarriaN umber: [id number] S cheduled PRN: No Total Refills: 1 Consta ntIndica tor: Yes CSAS chedule: 0 active _status_ dt_tm: 4:32:00 PM Not Available Not Available Not Available ketorolac 30 mg/mL (1 mL) injection solution 11/20 completed StopType : Physicia n Stop Juan Manuel Robertna jonesnemours foundationGlen umber: [id number] N extDoseD ate: 2 2:12:00 PM Const antIndic ator: No CSASc hedule: 0 active _status_ dt_tm: 2 2:19:19 PM Not Available Not Available Not Available levothyro xine 75 mcg tablet TAKE 1 TABLET BY MOUTH ONCE DAILY active Not Available Not Available No t Available BD Tuberculi n Syringe 1 mL 27 x 1/2 active Not Available Not Available Not Available prednisol one acetate 1 % eye drops,tom pension 07/06 completed Not Available Not Available Not Available methotrex ate sodium 2.5 mg tablet 06/16 completed Not Available Not Available Not Available baclofen 10 mg tablet TAKE ONE TABLET BY MOUTH TWICE DAILY FOR 30 DAYS active Not Available Not Available No t Available levothyro xine 50 mcg tablet TAKE ONE TABLET BY MOUTH ONCE DAILY 05/29 completed Disconti nueDate: 05/29/2021 11:34:52 AM Disco ntinueTy pe: User Manual DC StopT ype: Physicia n Stop Juan Manuel Robertna [facility] umber: [id number] C SASchedu le: 0 active _status_ dt_tm: 5:08:57 PM Not Available Not Available Not Available erythromy kan 5 mg/gram (0.5 %) eye ointment 10/14 completed Not Available Not Available Not Available ferrous sulfate 325 mg (65 mg iron) tablet 1 tab(s) PO qod or q 2 days; may take with food to minimize abdomina l discomfo rt 02/21 completed StopType : Soft Stop Juan Manuel Robertna [facility] umber: [id number] S cheduled PRN: No Total Refills: 1 Consta ntIndica tor: Yes CSAS chedule: 0 active _status_ dt_tm: 05/31/2021 3:03:55 PM Not Available Not Available Not Available gabapenti n 300 mg capsule TAKE ONE CAPSULE BY MOUTH THREE TIMES DAILY (TAKE WITH 600 MG TABLET FOR TOTAL DOSE 900 MG THREE TIMES DAILY) 2024 active Not Available Not Available Not Avai lable folic acid 1 mg tablet 06/18 completed Not Available Not Available Not Available lisinopri l 5 mg tablet 03/18 completed Disconti nueDate: 03/18/20 12:55:41 PM Disco ntinueTy pe: User Manual DC StopT ype: Physicia n Stop Juan Manuel gIdentif icationN umber: [id number] S cheduled PRN: No Total Refills: 0 Consta ntIndica tor: Yes CSAS chedule: 0 active _status_ dt_tm: 10:47:08 AM Not Available Not Available Not Available albuterol sulfate HFA 90 mcg/actua tion aerosol inhaler active Not Available Not Available Not Available lisinopri l 40 mg tablet 03/18 completed Disconti nueDate: 03/18/20 12:55:41 PM Disco ntinueTy pe: User Manual DC StopT ype: Physicia n Stop Juan Manuel gIdentif icationN umber: [id number] T otalRefi lls: 0 Consta ntIndica tor: Yes CSAS chedule: 0 active _status_ dt_tm: 10:47:08 AM Not Available Not Available Not Available fluticaso ne propionat e 50 mcg/actua tion nasal spray,tom pension 2 spray(s) Nasal daily active Not Available Not Available No t Available levothyro xine 112 mcg tablet 1 tab(s) Oral daily 08/28 completed Disconti nueDate: 08/28/2021 10:29:31 AM Disco ntinueTy pe: User Manual DC StopT ype: Physicia n Stop Juan Manuel gIdentif icationN umber: [id number] S cheduled PRN: No Total Refills: 0 Consta ntIndica tor: Yes CSAS chedule: 0 active _status_ dt_tm: 05/29/2021 11:47:27 AM Not Available Not Available Not Available amoxicill in 875 mg-potass ium clavulana te 125 mg tablet 1 tab(s) Oral q12hr,x7 days 05/18 completed Duration : 7 Durati onUnit: day(s) S topType: Physicia n Stop Juan Manuel gIdentif icationN umber: [id number] S cheduled PRN: No Total Refills: 0 Consta ntIndica tor: Yes CSAS chedule: 0 active _status_ dt_tm: 05/11/20 11:00:03 AM Not Available Not Available Not Available oxycodone 5 mg tablet 02/21 completed Not Available Not Available Not Available escitalop claudy 10 mg tablet 1 tab(s) Oral daily 08/30 completed Disconti nueDate: 08/30/2020 4:22:00 PM Disco ntinueTy pe: User Manual DC StopT ype: Physicia n Stop Juan Manuel gIdentif icationN umber: [id number] S cheduled PRN: No Total Refills: 1 Consta ntIndica tor: Yes CSAS chedule: 0 active _status_ dt_tm: 07/25/2020 1:13:50 PM Not Available Not Available Not Available escitalop claudy 20 mg tablet 1 tab(s) Oral daily 11/19 completed Disconti nueDate: 1:48:03 PM Disco ntinueTy pe: User Manual DC StopT ype: Physicia n Stop Juan Manuel gIdentif icationN umber: [id number] S cheduled PRN: No Total Refills: 1 Consta ntIndica tor: Yes CSAS chedule: 0 active _status_ dt_tm: 08/30/2020 4:23:11 PM Not Available Not Available Not Available methotrex ate sodium (PF) 25 mg/mL injection solution 06/16 completed Not Available Not Available Not Available Wellbutri n XL 300 mg 24 hr tablet, extended release 1 tab(s) Oral daily 01/02 completed Disconti nueDate: 11:21:47 AM Disco ntinueTy pe: User Manual DC StopT ype: Physicia n Stop Juan Manuel gIdentif icationN umber: [id number] T otalRefi lls: 1 Consta ntIndica tor: Yes CSAS chedule: 0 active _status_ dt_tm: 05/29/2021 11:47:27 AM Not Available Not Available Not Available escitalop claudy 5 mg tablet 1 tab(s) Oral daily 07/25 completed StopType : Physicia n Stop Juan Manuel gIdentif icationN umber: [id number] S cheduled PRN: No Total Refills: 0 Consta ntIndica tor: Yes CSAS chedule: 0 active _status_ dt_tm: 11:58:57 AM Not Available Not Available Not Available duloxetin e 30 mg capsule,d elayed release 1 cap(s) Oral bid 07/25 completed Disconti nueDate: 07/25/2020 1:13:00 PM Disco ntinueTy pe: User Manual DC StopT ype: Physicia n Stop Juan Manuel gIdentif icationN umber: [id number] T otalRefi lls: 0 Consta ntIndica tor: Yes CSAS chedule: 0 active _status_ dt_tm: 3:19:49 PM Not Available Not Available Not Available Enbrel SureClick 50 mg/mL (1 mL) subcutane ous pen injector 07/06 completed Not Available Not Available Not Available diclofena c 1 % topical gel 2 gm Topical tid,Inst r:not to exceed 16 grams/da y/single joint of lower extremit ies; not to exceed 8 grams/da y/single joint of upper extremit ies 2022 active Not Available Not Available Not Avai lable Budeprion XL 150 mg 24 hr tablet, extended release 1 tab(s) Oral daily 05/29 completed Disconti nueDate: 05/29/2021 11:47:51 AM Disco ntinueTy pe: User Manual DC StopT ype: Physicia n Stop Juan Manuel gIdentif icationN umber: [id number] S cheduled PRN: No Total Refills: 0 CSASch edule: 0 active _status_ dt_tm: 03/14/20 8:04:44 AM Not Available Not Available Not Available doxepin 3 mg tablet 1 tab(s) Oral qpm 08/31 completed StopType : Physicia n Stop Juan Manuel Michael jonesnemours foundationGlen umber: [id number] T otalRefi lls: 1 Consta ntIndica tor: Yes CSAS chedule: 0 active _status_ dt_tm: 08/30/2020 4:23:10 PM Not Available Not Available Not Available Jennifer Autoinjec tor (2 Pack) 80 mg/mL subcutane ous Inject 1 mL every 4 weeks by subcutan eous route. active Not Available Not Available No t Available Xiidra 5 % eye drops in a dropperet te active Not Available Not Available Not Available Humira(CF ) 40 mg/0.4 mL subcutane ous syringe kit 02/21 completed Not Available Not Available Not Available aspirin 325 mg capsule 02/26 completed Disconti nueDate: 4:29:54 PM Disco ntinueTy pe: User Manual DC StopT ype: Physicia n Stop Juan Manuel Robertna [facility] umber: [id number] T otalRefi lls: 0 Consta ntIndica tor: Yes CSAS chedule: 0 active _status_ dt_tm: 10:47:08 AM Not Available Not Available Not Available Vitals Date Recorded Body height Body mass index (BMI) Body weight Provider Name and Address Organization Details Last Updated DateTime 07/06/2024 160.02 cm 34.4 kg/m2 93865.92 g Magnolia Shipman [place] [facility] 07/06/2024 09:28:51 Social History Question Answer Notes LastModified by Organizat ion Details LastModified Time Tobacco Smoking Status Never Smoker Nicole aceves [place] [facility] 06/18/2023 10:27:26 What Is Your Level Of Alcohol Consumption? None [email or web address] Information not available 10/15/2023 What Was The Date Of Your Most Recent Tobacco Screening? 07/06/2024 [email or web address] Information not available 07/06/2024 Sex: Unknown Functional Status None recorded. Mental Status None recorded. Family History Relationship Description Onset Age of this Age Resolved Age Notes LastModified by Organization Details LastModified Time Mother Essential hypertension [email or web address] Not available 11:01:07 Father Chronic obstructive pulmonary disease [email or web address] Not available 2023 10:28:11 Father Congestive heart failure [email or web address] Not available 2023 11:01:07 Father Diabetes mellitus [email or web address] Not available 2023 10:28:26 Sister Cerebrovascu lar accident 36 [email or web address] Not available 11:01:07 Sister Essential hypertension [email or web address] Not available 11:01:07 Sister Diabetes mellitus [email or web address] Not available 2023 11:32:01 Sister Cerebrovascu lar accident [email or web address] Not available 11:01:07 Notes:Father: COPD, Heart fa ilure Medical History No medical history recorded. Gynecological HistoryNo gynecological history recorded. Obstetrics History GPAL:G 0 P 0 0 0 0 Immunizations Vaccine Type Date Status Note Provider Nam e and Address Organization Details Recorded Time Td(adult) unspecified formulation 8 completed Not Available [facility] 09/10/2023 16:34:19 Past Encounters Encounter ID Performer Location Encounter Start Date Encounter Closed Date Diagnosis/Indication Diagnosis SNOMED-CT Code Diagnosis ICD10 Code Diagnosis Note [id number] Vik loja [address] [place] [address] 04/29/2023 11:22:36 04/29/2023 14:13:39 Neck pain 90074025 M54.2 Low back pain 394423236 M54.50 [id number] Yolanda Arce DC Je[address] [place] [address] 05/11/2023 10:06:56 05/11/2023 12:24:45 Low back pain 616888063 M54.50 Neck pain 81237940 M54.2 Cervical s egmental dysfunction 410723045 M99.01 Somatic dy sfunction of pelvic region 589240606 M99.05 [id number] Vik loja [address] [place] [address] 05/21/2023 10:22:36 05/21/2023 11:19:48 Neck pain 49294928 M54.2 Thoracic back pain 88388 8004 M54.6 Low back pain 243680314 M54.50 [id number] DAVE [facility] [address] [place] [address] 05/28/2023 10:07:11 05/28/2023 10:35:11 Low back pain 077457212 M54.50 Neck pain 76968678 M54.2 Cervical s egmental dysfunction 794658979 M99.01 Somatic dy sfunction of pelvic region 058328396 M99.05 [id number] Missy Brooks [address] [address] 06/04/2023 10:43:48 06/04/2023 11:52:13 Chronic low back pain 524097767 M54.50 Chronic neck pain 624127 7850 107 M54.2 [id number] DAVE MALAVE [facility] [address] [place] [address] 06/08/2023 09:59:01 06/08/2023 10:25:32 Low back pain 780960874 M54.50 Neck pain 36103486 M54.2 Cervical s egmental dysfunction 831867479 M99.01 Somatic dy sfunction of pelvic region 042925850 M99.05 Chronic low back pain 27 0506073 M54.50 [id number] Joanne Alvarez MD [address] [address] 06/18/2023 10:20:48 06/26/2023 06:30:05 Hypothyroidism 60383938 E03.9 stable last check 11/2022, continue meds at 75 mcg Hyperlipidemia 99135085 E78.5 continue lipitor max dose 80 mg HOWEVER pt states as her stroke was related to PFO , may consider stopping or lowering her statin dose, d/w pt I have no recent notes from Dr Dane toure darrell syndrome of left wrist 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 referred her back to hand ortho, as she wants to proceed with surgical correction , she mentions that her ortho favored tendonitis over CTS as cause of her pain based on MRI wrist findings, I will try to obtain those notes as they have not sent any to me, I did place referral for that ortho consult if she gets f/u appt with ortho, and agreeable to their recs , she will continue care with them, if not may refer her to orthopedic assc for second opinion defer any further imaging recs to orthopedis t (s) Chronic pain syndrome 37 6914891 G89.4 wants to trial increase in baclofen, d/w pt I did continue her on chronic baclofen but wanted to limit her to BID, we have tried to stop it in past and she required it to maintain her back pain and spasm, aware of potention of dependence and tolerance at that time see back pain below Urge incon tinence of urine 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.41 stable on her metronic stimulator Psoriatic arthritis 1563 54019 L40.50 will get routine labs with her rheumatolo gist (CMP, ESR, CRP) Screening for malignant neoplasm of colon 124010691 Z12.11 due 2023, Tl Jennings MD in [place], due towards end of year, will refer and she can set with them per their recommenda tions Screening for malignant neoplasm of cervix 019849070 Z12.4 due 2022, has not seen ms sql developer for 5 years since of last child Screening for malignant neoplasm of breast 300078977 Z12.39 next due 01/2024 [facility] Diabetes m ellitus screening 065247641 Z13.1 routine check, low risk except for weight gain with limited physical activity Menorrhagia 559280177 N9 2.0 likely related to perimenopa use, will rule out uterine pathology with pelvic US as well as check her CBC to ensure she is not anemic, she does have a history of low ferritin, but last iron panel checked 2020 was normal refer to ms sql developer if US abnormal ( she has not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
--- OUTSIDE RECORDS SUMMARY | 2024-07-18 11:52 | XMS_ITS | Patient Health Summary ---
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 identified. Thoracic spine: The alignment is normal. Subtle age-indeterminate anterior compression deformity of the T12 vertebral body. Vertebral bodies are normal in height without evidence of acute fracture. The intervertebral discs appear normal. No central canal stenosis is seen. Mild degenerative changes of the facet joints. No significant neural foraminal stenosis is seen. No soft tissue abnormality is identified. Lumbar spine: The alignment is normal. Vertebral bodies are normal in height without evidence of acute fracture. There is mild degenerative disc disease. No significant central canal stenosis is seen. There are varying degrees of mild facet osteoarthritis. Mild neural foraminal stenosis is seen at L5-S1. There is atherosclerotic calcification of the abdominal aorta and its branch vessels. A neurostimulator device is present in the right buttocks with the lead coursing through the left sacral area. Procedure Note Erin Voss MD - 11/13/2021 CT HEAD WO CONTRAST, CT FACIAL BONES WO CONTRAST, CT LUMBAR SPINE WO CONTRAST, CT THORACIC SPINE WO CONTRAST, CT CERVICAL SPINE WO CONTRAST DATE: 11/12/2021 8:02 PM EXAMINATION: 1. Computed tomography (CT) of the head without contrast 2. CT of the maxillofacial bones, orbits, and paranasal sinuses without contrast 3. CT of the cervical spine without contrast 4. CT of the thoracic spine without contrast 5. CT of the lumbar spine without contrast HISTORY: Trauma TECHNIQUE: CT of the head, cervical spine, and maxillofacial bones, orbits, and paranasal sinuses was performed without contrast accordingto standard protocol. Reformatted axial, sagittal, and coronal images ofthe thoracic and lumbar spine were obtained by the technologist from a concurrently performed body CT and sent to the workstation for review. COMPARISON: No prior study is available for comparison at the time ofthis dictation. FINDINGS: Head: No acute intra- or extra-axial fluid collections are identified. The ventricles are of normal size, shape, and morphology. The basilarcisterns are patent. No mass effect or midline shift is seen. The welch-whitematter differentiation is normal. Mild prominence of the pineal gland measuring 1.2 x 0.7 cm with a small central calcification, (series 3, image 17).No acute calvarial fracture is identified. Maxillofacial: The orbits appear normal. There is mild paranasal sinus disease. Thenasal septum is related to the right. Mild hypertrophy of the inferior turbinates, left more than right. The hard palate, mandible, and temporomandibular joints appear normal. Small Jeovanny cells are noted. No acute facial bone fractures are identified. The mastoid air cells are clear. No soft tissue abnormality is identified. Cervical spine: Trace anterolisthesis of C3 on C4. Trace anterolisthesis of C6 on C7 and C7 on T1. Minimal dextrocurvature of the cervical spine. The alignmentis otherwise maintained. Vertebral bodies are normal in height without evidence of acute fracture. The craniocervical junction is normal. There is mild degenerative disc disease. No central canal stenosis is seen. There are varying degrees of mild to advanced facet osteoarthritis.There are varying degrees of mild uncovertebral joint osteoarthritis with the same degree of neural foraminal stenosis at these levels. No soft tissue abnormality is identified. Thoracic spine: The alignment is normal. Subtle age-indeterminate anterior compression deformity of the T12 vertebral body. Vertebral bodies are normal inheight without evidence of acute fracture. The intervertebral discs appear normal. No central canal stenosis is seen. Mild degenerative changes of the facet joints. No significant neural foraminal stenosis is seen. No soft tissue abnormality is identified. Lumbar spine: The alignment is normal. Vertebral bodies are normal in height without evidence of acute fracture. There is mild degenerative disc disease. No significant central canal stenosis is seen. There are varying degrees of mild facet osteoarthritis. Mild neural foraminal stenosis is seen at L5-S1. There is atherosclerotic calcification of the abdominal aorta and its branch vessels. A neurostimulator device is present in the right buttocks with the lead coursing through the left sacral area. IMPRESSION: 1.No acute intracranial hemorrhage, mass effect, or midline shift. 2.No acute facial bone fractures identified. 3.No evidence of acute fracture in the cervical, thoracic, or lumbarspine. Please refer to the separately dictated report of CT scan of the chest, abdomen and pelvis for intrathoracic and intra-abdominal findings. Dictated by Rico Snider MD (orthodontist vice president). This report was approved by Rico Snider on 11/13/2021 10:21 AM . IDr. ERIN have personally reviewed and interpreted this examination/study. This report was electronically signed by ERIN VOSS on11/13/2021 10:22 AM . Leno Sprague MD CT ORDERABLES * CT CERVICAL SPINE WO CONTRAST - C-Spine Trauma, Spine fracture (11/12/2021 7:58 PM CDT) Anatomical Region Laterality Modality Spine Computed Tomogra phy 11/13/2021 8:11 AM CDT Impressions 11/13/2021 10:22 AM CDT IMPRESSION: 1.No acute intracranial hemorrhage, mass effect, or midline shift. 2.No acute facial bone fractures identified. 3.No evidence of acute fracture in the cervical, thoracic, or lumbar spine. Please refer to the separately dictated report of CT scan of the chest, abdomen and pelvis for intrathoracic and intra-abdominal findings. Dictated by Rico Snider MD (orthodontist vice president). This report was approved by Rico Snider on 11/13/2021 10:21 AM . I, Dr. ERIN VOSS have personally reviewed and interpreted this examination/study. This report was electronically signed by ERIN VOSS on 11/13/2021 10:22 AM . Narrative 11/13/2021 10:[address] HEAD WO CONTRAST, CT FACIAL BONES WO CONTRAST, CT LUMBAR SPINE WO CONTRAST, CT THORACIC SPINE WO CONTRAST, CT CERVICAL SPINE WO CONTRAST DATE: 11/12/2021 8:02 PM EXAMINATION: 1. Computed tomography (CT) of the head without contrast 2. CT of the maxillofacial bones, orbits, and paranasal sinuses without contrast 3. CT of the cervical spine without contrast 4. CT of the thoracic spine without contrast 5. CT of the lumbar spine without contrast HISTORY: Trauma TECHNIQUE: CT of the head, cervical spine, and maxillofacial bones, orbits, and paranasal sinuses was performed without contrast according to standard protocol. Reformatted axial, sagittal, and coronal images of the thoracic and lumbar spine were obtained by the technologist from a concurrently performed body CT and sent to the workstation for review. COMPARISON: No prior study is available for comparison at the time of this dictation. FINDINGS: Head: No acute intra- or extra-axial fluid collections are identified. The ventricles are of normal size, shape, and morphology. The basilar cisterns are patent. No mass effect or midline shift is seen. The welch-white matter differentiation is normal. Mild prominence of the pineal gland measuring 1.2 x 0.7 cm with a small central calcification, (series 3, image 17). No acute calvarial fracture is identified. Maxillofacial: The orbits appear normal. There is mild paranasal sinus disease. The nasal septum is related to the right. Mild hypertrophy of the inferior turbinates, left more than right. The hard palate, mandible, and temporomandibular joints appear normal. Small Jeovanny cells are noted. No acute facial bone fractures are identified. The mastoid air cells are clear. No soft tissue abnormality is identified. Cervical spine: Trace anterolisthesis of C3 on C4. Trace anterolisthesis of C6 on C7 and C7 on T1. Minimal dextrocurvature of the cervical spine. The alignment is otherwise maintained. Vertebral bodies are normal in height without evidence of acute fracture. The craniocervical junction is normal. There is mild degenerative disc disease. No central canal stenosis is seen. There are varying degrees of mild to advanced facet osteoarthritis. There are varying degrees of mild uncovertebral joint osteoarthritis with the same degree of neural foraminal stenosis at these levels. No soft tissue abnormality is identified. Thoracic spine: The alignment is normal. Subtle age-indeterminate anterior compression deformity of the T12 vertebral body. Vertebral bodies are normal in height without evidence of acute fracture. The intervertebral discs appear normal. No central canal stenosis is seen. Mild degenerative changes of the facet joints. No significant neural foraminal stenosis is seen. No soft tissue abnormality is identified. Lumbar spine: The alignment is normal. Vertebral bodies are normal in height without evidence of acute fracture. There is mild degenerative disc disease. No significant central canal stenosis is seen. There are varying degrees of mild facet osteoarthritis. Mild neural foraminal stenosis is seen at L5-S1. There is atherosclerotic calcification of the abdominal aorta and its branch vessels. A neurostimulator device is present in the right buttocks with the lead coursing through the left sacral area. Procedure Note Erin Voss MD - 11/13/2021 CT HEAD WO CONTRAST, CT FACIAL BONES WO CONTRAST, CT LUMBAR SPINE WO CONTRAST, CT THORACIC SPINE WO CONTRAST, CT CERVICAL SPINE WO CONTRAST DATE: 11/12/2021 8:02 PM EXAMINATION: 1. Computed tomography (CT) of the head without contrast 2. CT of the maxillofacial bones, orbits, and paranasal sinuses without contrast 3. CT of the cervical spine without contrast 4. CT of the thoracic spine without contrast 5. CT of the lumbar spine without contrast HISTORY: Trauma TECHNIQUE: CT of the head, cervical spine, and maxillofacial bones, orbits, and paranasal sinuses was performed without contrast accordingto standard protocol. Reformatted axial, sagittal, and coronal images ofthe thoracic and lumbar spine were obtained by the technologist from a concurrently performed body CT and sent to the workstation for review. COMPARISON: No prior study is available for comparison at the time ofthis dictation. FINDINGS: Head: No acute intra- or extra-axial fluid collections are identified. The ventricles are of normal size, shape, and morphology. The basilarcisterns are patent. No mass effect or midline shift is seen. The welch-whitematter differentiation is normal. Mild prominence of the pineal gland measuring 1.2 x 0.7 cm with a small central calcification, (series 3, image 17).No acute calvarial fracture is identified. Maxillofacial: The orbits appear normal. There is mild paranasal sinus disease. Thenasal septum is related to the right. Mild hypertrophy of the inferior turbinates, left more than right. The hard palate, mandible, and temporomandibular joints appear normal. Small Jeovanny cells are noted. No acute facial bone fractures are identified. The mastoid air cells are clear. No soft tissue abnormality is identified. Cervical spine: Trace anterolisthesis of C3 on C4. Trace anterolisthesis of C6 on C7 and C7 on T1. Minimal dextrocurvature of the cervical spine. The alignmentis otherwise maintained. Vertebral bodies are normal in height without evidence of acute fracture. The craniocervical junction is normal. There is mild degenerative disc disease. No central canal stenosis is seen. There are varying degrees of mild to advanced facet osteoarthritis.There are varying degrees of mild uncovertebral joint osteoarthritis with the same degree of neural foraminal stenosis at these levels. No soft tissue abnormality is identified. Thoracic spine: The alignment is normal. Subtle age-indeterminate anterior compression deformity of the T12 vertebral body. Vertebral bodies are normal inheight without evidence of acute fracture. The intervertebral discs appear normal. No central canal stenosis is seen. Mild degenerative changes of the facet joints. No significant neural foraminal stenosis is seen. No soft tissue abnormality is identified. Lumbar spine: The alignment is normal. Vertebral bodies are normal in height without evidence of acute fracture. There is mild degenerative disc disease. No significant central canal stenosis is seen. There are varying degrees of mild facet osteoarthritis. Mild neural foraminal stenosis is seen at L5-S1. There is atherosclerotic calcification of the abdominal aorta and its branch vessels. A neurostimulator device is present in the right buttocks with the lead coursing through the left sacral area. IMPRESSION: 1.No acute intracranial hemorrhage, mass effect, or midline shift. 2.No acute facial bone fractures identified. 3.No evidence of acute fracture in the cervical, thoracic, or lumbarspine. Please refer to the separately dictated report of CT scan of the chest, abdomen and pelvis for intrathoracic and intra-abdominal findings. Dictated by Rico Snider MD (orthodontist vice president). This report was approved by Rico Snider on 11/13/2021 10:[address] ERIN Jimenez have personally reviewed and interpreted this examination/study. This report was electronically signed by ERIN VOSS on11/13/2021 10:22 AM . Leno Sprague MD CT ORDERABLES * CT FACIAL BONES WO CONTRAST - Facial trauma, fx suspected, blunt (11/12/2021 7:58 PM CDT) Anatomical Region Laterality Modality Head Computed Tomogra phy 11/13/2021 8:11 AM CDT Impressions 11/13/2021 10:22 AM CDT IMPRESSION: 1.No acute intracranial hemorrhage, mass effect, or midline shift. 2.No acute facial bone fractures identified. 3.No evidence of acute fracture in the cervical, thoracic, or lumbar spine. Please refer to the separately dictated report of CT scan of the chest, abdomen and pelvis for intrathoracic and intra-abdominal findings. Dictated by Rico Snider MD (orthodontist vice president). This report was approved by Rico Snider on 11/13/2021 10:[address] ERIN Jimenez have personally reviewed and interpreted this examination/study. This report was electronically signed by ERIN VOSS on 11/13/2021 10:22 AM . Narrative 11/13/2021 10:[address] HEAD WO CONTRAST, CT FACIAL BONES WO CONTRAST, CT LUMBAR SPINE WO CONTRAST, CT THORACIC SPINE WO CONTRAST, CT CERVICAL SPINE WO CONTRAST DATE: 11/12/2021 8:02 PM EXAMINATION: 1. Computed tomography (CT) of the head without contrast 2. CT of the maxillofacial bones, orbits, and paranasal sinuses without contrast 3. CT of the cervical spine without contrast 4. CT of the thoracic spine without contrast 5. CT of the lumbar spine without contrast HISTORY: Trauma TECHNIQUE: CT of the head, cervical spine, and maxillofacial bones, orbits, and paranasal sinuses was performed without contrast according to standard protocol. Reformatted axial, sagittal, and coronal images of the thoracic and lumbar spine were obtained by the technologist from a concurrently performed body CT and sent to the workstation for review. COMPARISON: No prior study is available for comparison at the time of this dictation. FINDINGS: Head: No acute intra- or extra-axial fluid collections are identified. The ventricles are of normal size, shape, and morphology. The basilar cisterns are patent. No mass effect or midline shift is seen. The welch-white matter differentiation is normal. Mild prominence of the pineal gland measuring 1.2 x 0.7 cm with a small central calcification, (series 3, image 17). No acute calvarial fracture is identified. Maxillofacial: The orbits appear normal. There is mild paranasal sinus disease. The nasal septum is related to the right. Mild hypertrophy of the inferior turbinates, left more than right. The hard palate, mandible, and temporomandibular joints appear normal. Small Jeovanny cells are noted. No acute facial bone fractures are identified. The mastoid air cells are clear. No soft tissue abnormality is identified. Cervical spine: Trace anterolisthesis of C3 on C4. Trace anterolisthesis of C6 on C7 and C7 on T1. Minimal dextrocurvature of the cervical spine. The alignment is otherwise maintained. Vertebral bodies are normal in height without evidence of acute fracture. The craniocervical junction is normal. There is mild degenerative disc disease. No central canal stenosis is seen. There are varying degrees of mild to advanced facet osteoarthritis. There are varying degrees of mild uncovertebral joint osteoarthritis with the same degree of neural foraminal stenosis at these levels. No soft tissue abnormality is identified. Thoracic spine: The alignment is normal. Subtle age-indeterminate anterior compression deformity of the T12 vertebral body. Vertebral bodies are normal in height without evidence of acute fracture. The intervertebral discs appear normal. No central canal stenosis is seen. Mild degenerative changes of the facet joints. No significant neural foraminal stenosis is seen. No soft tissue abnormality is identified. Lumbar spine: The alignment is normal. Vertebral bodies are normal in height without evidence of acute fracture. There is mild degenerative disc disease. No significant central canal stenosis is seen. There are varying degrees of mild facet osteoarthritis. Mild neural foraminal stenosis is seen at L5-S1. There is atherosclerotic calcification of the abdominal aorta and its branch vessels. A neurostimulator device is present in the right buttocks with the lead coursing through the left sacral area. Procedure Note Erin Voss MD - 11/13/2021 CT HEAD WO CONTRAST, CT FACIAL BONES WO CONTRAST, CT LUMBAR SPINE WO CONTRAST, CT THORACIC SPINE WO CONTRAST, CT CERVICAL SPINE WO CONTRAST DATE: 11/12/2021 8:02 PM EXAMINATION: 1. Computed tomography (CT) of the head without contrast 2. CT of the maxillofacial bones, orbits, and paranasal sinuses without contrast 3. CT of the cervical spine without contrast 4. CT of the thoracic spine without contrast 5. CT of the lumbar spine without contrast HISTORY: Trauma TECHNIQUE: CT of the head, cervical spine, and maxillofacial bones, orbits, and paranasal sinuses was performed without contrast accordingto standard protocol. Reformatted axial, sagittal, and coronal images ofthe thoracic and lumbar spine were obtained by the technologist from a concurrently performed body CT and sent to the workstation for review. COMPARISON: No prior study is available for comparison at the time ofthis dictation. FINDINGS: Head: No acute intra- or extra-axial fluid collections are identified. The ventricles are of normal size, shape, and morphology. The basilarcisterns are patent. No mass effect or midline shift is seen. The welch-whitematter differentiation is normal. Mild prominence of the pineal gland measuring 1.2 x 0.7 cm with a small central calcification, (series 3, image 17).No acute calvarial fracture is identified. Maxillofacial: The orbits appear normal. There is mild paranasal sinus disease. Thenasal septum is related to the right. Mild hypertrophy of the inferior turbinates, left more than right. The hard palate, mandible, and temporomandibular joints appear normal. Small Jeovanny cells are noted. No acute facial bone fractures are identified. The mastoid air cells are clear. No soft tissue abnormality is identified. Cervical spine: Trace anterolisthesis of C3 on C4. Trace anterolisthesis of C6 on C7 and C7 on T1. Minimal dextrocurvature of the cervical spine. The alignmentis otherwise maintained. Vertebral bodies are normal in height without evidence of acute fracture. The craniocervical junction is normal. There is mild degenerative disc disease. No central canal stenosis is seen. There are varying degrees of mild to advanced facet osteoarthritis.There are varying degrees of mild uncovertebral joint osteoarthritis with the same degree of neural foraminal stenosis at these levels. No soft tissue abnormality is identified. Thoracic spine: The alignment is normal. Subtle age-indeterminate anterior compression deformity of the T12 vertebral body. Vertebral bodies are normal inheight without evidence of acute fracture. The intervertebral discs appear normal. No central canal stenosis is seen. Mild degenerative changes of the facet joints. No significant neural foraminal stenosis is seen. No soft tissue abnormality is identified. Lumbar spine: The alignment is normal. Vertebral bodies are normal in height without evidence of acute fracture. There is mild degenerative disc disease. No significant central canal stenosis is seen. There are varying degrees of mild facet osteoarthritis. Mild neural foraminal stenosis is seen at L5-S1. There is atherosclerotic calcification of the abdominal aorta and its branch vessels. A neurostimulator device is present in the right buttocks with the lead coursing through the left sacral area. IMPRESSION: 1.No acute intracranial hemorrhage, mass effect, or midline shift. 2.No acute facial bone fractures identified. 3.No evidence of acute fracture in the cervical, thoracic, or lumbarspine. Please refer to the separately dictated report of CT scan of the chest, abdomen and pelvis for intrathoracic and intra-abdominal findings. Dictated by Rico Snider MD (orthodontist vice president). This report was approved by Rico Snider on 11/13/2021 10:21 AM . IDr. ERIN have personally reviewed and interpreted this examination/study. This report was electronically signed by ERIN VOSS on11/13/2021 10:22 AM . Leno Sprague MD CT ORDERABLES * CT HEAD WO CONTRAST - Head Trauma, CSF leak, mental status changes (11/12/2021 7:58 PM CDT) Anatomical Region Laterality Modality Head Computed Tomogra phy 11/13/2021 8:11 AM CDT Impressions 11/13/2021 10:22 AM CDT IMPRESSION: 1.No acute intracranial hemorrhage, mass effect, or midline shift. 2.No acute facial bone fractures identified. 3.No evidence of acute fracture in the cervical, thoracic, or lumbar spine. Please refer to the separately dictated report of CT scan of the chest, abdomen and pelvis for intrathoracic and intra-abdominal findings. Dictated by Rico Snider MD (orthodontist vice president). This report was approved by Rico Snider on 11/13/2021 10:21 AM . I, Dr. ERIN VOSS have personally reviewed and interpreted this examination/study. This report was electronically signed by ERIN VOSS on 11/13/2021 10:22 AM . Narrative 11/13/2021 10:[address] HEAD WO CONTRAST, CT FACIAL BONES WO CONTRAST, CT LUMBAR SPINE WO CONTRAST, CT THORACIC SPINE WO CONTRAST, CT CERVICAL SPINE WO CONTRAST DATE: 11/12/2021 8:02 PM EXAMINATION: 1. Computed tomography (CT) of the head without contrast 2. CT of the maxillofacial bones, orbits, and paranasal sinuses without contrast 3. CT of the cervical spine without contrast 4. CT of the thoracic spine without contrast 5. CT of the lumbar spine without contrast HISTORY: Trauma TECHNIQUE: CT of the head, cervical spine, and maxillofacial bones, orbits, and paranasal sinuses was performed without contrast according to standard protocol. Reformatted axial, sagittal, and coronal images of the thoracic and lumbar spine were obtained by the technologist from a concurrently performed body CT and sent to the workstation for review. COMPARISON: No prior study is available for comparison at the time of this dictation. FINDINGS: Head: No acute intra- or extra-axial fluid collections are identified. The ventricles are of normal size, shape, and morphology. The basilar cisterns are patent. No mass effect or midline shift is seen. The welch-white matter differentiation is normal. Mild prominence of the pineal gland measuring 1.2 x 0.7 cm with a small central calcification, (series 3, image 17). No acute calvarial fracture is identified. Maxillofacial: The orbits appear normal. There is mild paranasal sinus disease. The nasal septum is related to the right. Mild hypertrophy of the inferior turbinates, left more than right. The hard palate, mandible, and temporomandibular joints appear normal. Small Jeovanny cells are noted. No acute facial bone fractures are identified. The mastoid air cells are clear. No soft tissue abnormality is identified. Cervical spine: Trace anterolisthesis of C3 on C4. Trace anterolisthesis of C6 on C7 and C7 on T1. Minimal dextrocurvature of the cervical spine. The alignment is otherwise maintained. Vertebral bodies are normal in height without evidence of acute fracture. The craniocervical junction is normal. There is mild degenerative disc disease. No central canal stenosis is seen. There are varying degrees of mild to advanced facet osteoarthritis. There are varying degrees of mild uncovertebral joint osteoarthritis with the same degree of neural foraminal stenosis at these levels. No soft tissue abnormality is identified. Thoracic spine: The alignment is normal. Subtle age-indeterminate anterior compression deformity of the T12 vertebral body. Vertebral bodies are normal in height without evidence of acute fracture. The intervertebral discs appear normal. No central canal stenosis is seen. Mild degenerative changes of the facet joints. No significant neural foraminal stenosis is seen. No soft tissue abnormality is identified. Lumbar spine: The alignment is normal. Vertebral bodies are normal in height without evidence of acute fracture. There is mild degenerative disc disease. No significant central canal stenosis is seen. There are varying degrees of mild facet osteoarthritis. Mild neural foraminal stenosis is seen at L5-S1. There is atherosclerotic calcification of the abdominal aorta and its branch vessels. A neurostimulator device is present in the right buttocks with the lead coursing through the left sacral area. Procedure Note Erin Voss MD - 11/13/2021 CT HEAD WO CONTRAST, CT FACIAL BONES WO CONTRAST, CT LUMBAR SPINE WO CONTRAST, CT THORACIC SPINE WO CONTRAST, CT CERVICAL SPINE WO CONTRAST DATE: 11/12/2021 8:02 PM EXAMINATION: 1. Computed tomography (CT) of the head without contrast 2. CT of the maxillofacial bones, orbits, and paranasal sinuses without contrast 3. CT of the cervical spine without contrast 4. CT of the thoracic spine without contrast 5. CT of the lumbar spine without contrast HISTORY: Trauma TECHNIQUE: CT of the head, cervical spine, and maxillofacial bones, orbits, and paranasal sinuses was performed without contrast accordingto standard protocol. Reformatted axial, sagittal, and coronal images ofthe thoracic and lumbar spine were obtained by the technologist from a concurrently performed body CT and sent to the workstation for review. COMPARISON: No prior study is available for comparison at the time ofthis dictation. FINDINGS: Head: No acute intra- or extra-axial fluid collections are identified. The ventricles are of normal size, shape, and morphology. The basilarcisterns are patent. No mass effect or midline shift is seen. The welch-whitematter differentiation is normal. Mild prominence of the pineal gland measuring 1.2 x 0.7 cm with a small central calcification, (series 3, image 17).No acute calvarial fracture is identified. Maxillofacial: The orbits appear normal. There is mild paranasal sinus disease. Thenasal septum is related to the right. Mild hypertrophy of the inferior turbinates, left more than right. The hard palate, mandible, and temporomandibular joints appear normal. Small Jeovanny cells are noted. No acute facial bone fractures are identified. The mastoid air cells are clear. No soft tissue abnormality is identified. Cervical spine: Trace anterolisthesis of C3 on C4. Trace anterolisthesis of C6 on C7 and C7 on T1. Minimal dextrocurvature of the cervical spine. The alignmentis otherwise maintained. Vertebral bodies are normal in height without evidence of acute fracture. The craniocervical junction is normal. There is mild degenerative disc disease. No central canal stenosis is seen. There are varying degrees of mild to advanced facet osteoarthritis.There are varying degrees of mild uncovertebral joint osteoarthritis with the same degree of neural foraminal stenosis at these levels. No soft tissue abnormality is identified. Thoracic spine: The alignment is normal. Subtle age-indeterminate anterior compression deformity of the T12 vertebral body. Vertebral bodies are normal inheight without evidence of acute fracture. The intervertebral discs appear normal. No central canal stenosis is seen. Mild degenerative changes of the facet joints. No significant neural foraminal stenosis is seen. No soft tissue abnormality is identified. Lumbar spine: The alignment is normal. Vertebral bodies are normal in height without evidence of acute fracture. There is mild degenerative disc disease. No significant central canal stenosis is seen. There are varying degrees of mild facet osteoarthritis. Mild neural foraminal stenosis is seen at L5-S1. There is atherosclerotic calcification of the abdominal aorta and its branch vessels. A neurostimulator device is present in the right buttocks with the lead coursing through the left sacral area. IMPRESSION: 1.No acute intracranial hemorrhage, mass effect, or midline shift. 2.No acute facial bone fractures identified. 3.No evidence of acute fracture in the cervical, thoracic, or lumbarspine. Please refer to the separately dictated report of CT scan of the chest, abdomen and pelvis for intrathoracic and intra-abdominal findings. Dictated by Rico Snider MD (orthodontist vice president). This report was approved by Rico Snider on 11/13/2021 10:[address] ERIN Jimenez have personally reviewed and interpreted this examination/study. This report was electronically signed by ERIN VOSS on11/13/2021 10:22 AM . Leno Sprague MD CT ORDERABLES * XR PELVIS 1 OR 2VW (11/12/2021 7:45 PM CDT) Anatomical Region Laterality Modality Pelvis Radiographic Jocy ging 11/12/2021 8:12 PM CDT Impressions 11/13/2021 12:12 AM CDT IMPRESSION: No acute fracture identified. Dictated by Juanjo Arriaga MD (orthodontist vice president). Dr. ATTILA Jimenez have personally reviewed and interpreted this examination/study. This report was electronically signed by ATTILA CARRION on 11/13/2021 12:12 AM . Narrative 11/13/2021 12:12 AM CDT EXAMINATION: XR PELVIS 1 OR 2VW HISTORY: Trauma Fracture suspected COMPARISON: Comparison is made to subsequent CT chest abdomen pelvis dated 11/12/2021 at 1942 hours FINDINGS: No acute fracture is identified. The femoral heads appear well-seated within their respective acetabula. The pubic symphysis is intact. The osseous architecture and density are normal. The sacroiliac joints are normal. A stimulator device is present in the right flank soft tissues with leads projecting over the sacrum. Procedure Note Attila Carrion MD - 11/13/2021 EXAMINATION: XR PELVIS 1 OR 2VW HISTORY: Trauma Fracture suspected COMPARISON: Comparison is made to subsequent CT chest abdomen pelvisdated 11/12/2021 at 1942 hours FINDINGS: No acute fracture is identified. The femoral heads appear well-seated within their respective acetabula. The pubic symphysis is intact. The osseous architecture and density are normal. The sacroiliac joints are normal. A stimulator device is present in the right flank soft tissues with leads projecting over the sacrum. IMPRESSION: No acute fracture identified. Dictated by Juanjo Arriaga MD (orthodontist vice president). Dr. ATTILA Jimenez have personally reviewed and interpreted this examination/study. This report was electronically signed by ATTILA CARRION on 11/13/2021 12:12 AM . Leno Sprague MD DIAGNOSTIC IMAGING O RDERABLES * XR CHEST 1VW PORTABLE (11/12/2021 7:45 PM CDT) Anatomical Region Laterality Modality Chest Radiographic Jocy ging 11/12/2021 8:11 PM CDT Impressions 11/13/2021 12:11 AM CDT IMPRESSION: Clear lungs. Dictated by Juanjo Arriaga MD (orthodontist vice president). Dr. ATTILA Jimenez have personally reviewed and interpreted this examination/study. This report was electronically signed by ATTILA CARRION on 11/13/2021 12:11 AM . Narrative 11/13/2021 12:11 AM CDT EXAMINATION: XR CHEST 1VW PORTABLE HISTORY: Trauma COMPARISON: Comparison is made to subsequent CT chest abdomen pelvis dated 11/12/2021 at 1949 hours FINDINGS: The patient is rotated to the right. There is no focal consolidation, pleural effusion, or pneumothorax. The cardiomediastinal silhouette is normal. The visible bony thorax is intact. Procedure Note Attila Carrion MD - 11/13/2021 EXAMINATION: XR CHEST 1VW PORTABLE HISTORY: Trauma COMPARISON: Comparison is made to subsequent CT chest abdomen pelvisdated 11/12/2021 at 1949 hours FINDINGS: The patient is rotated to the right. There is no focal consolidation, pleural effusion, or pneumothorax. The cardiomediastinal silhouette is normal. The visible bony thorax isintact. IMPRESSION: Clear lungs. Dictated by Juanjo Arriaga MD (orthodontist vice president). I, Dr. ATTILA CARRION have personally reviewed and interpreted this examination/study. This report was electronically signed by ATTILA CARRION on 11/13/2021 12:11 AM . Leno Sprague MD DIAGNOSTIC IMAGING O RDERABLES * TEG 6 GLOBAL HEMOSTASIS W/ LYSIS (11/12/2021 7:25 PM CDT) Citrated Kaolin R (Reaction Time) 8.1 4.6 - 9.1 min 11/12/2021 8:38 PM CDT [facility] Citrated Kaolin LY30 (Lysis) 0.1 0.0 - 2.6 % 11/12/2021 8:38 PM CDT [facility] Citrated RapidTEG MA (Max Amplitude) 66.5 52.0 - 70.0 mm 11/12/2021 8:38 PM CDT [facility] Citrated Functional Fibrinogen MA (Max Amplitude) 24.6 15.0 - 32.0 mm 11/12/2021 8:38 PM CDT [facility] Blood BLOOD SPECIMEN / Unknown Venipuncture / Unknown 11/12/2021 7:25 PM CDT 11/12/2021 7:30 PM CDT Leno Sprague MD LAB - HEMATOLOGY ORD ERABLES [facility] [address] [place] [phone], [facility] [phone] * (ABNORMAL) TEG 6S PLATELET MAPPING (11/12/2021 7:25 PM CDT) TEGPLM (Max Amplitude) Koalin 67 53 - 68 mm 11/12/2021 8:29 PM CDT [facility] TEGPLM (Max Amplitude) ACTF 13 2 - 19 mm 11/12/2021 8:29 PM CDT [facility] TEGPLM (Max Amplitude) ADP 57 45 - 69 mm 11/12/2021 8:29 PM CDT [facility] TEGPLM (Max Amplitude) AA 63 51 - 71 mm 11/12/2021 8:29 PM T [facility] TEGPLM %Inhibition ADP 18(H) 0 - 17 % 11/12/2021 8:29 PM T [facility] TEGPLM %Inhibition AA 7 0 - 11 % 11/12/2021 8:29 PM T [facility] TEGPLM %Aggregation ADP 82(L) 83 - 100 % 11/12/2021 8:29 PM T [facility] TEGPLM % Aggregation AA 93 89 - 100 % 11/12/2021 8:29 PM [facility] Blood BLOOD SPECIMEN / Unknown Venipuncture / Unknown 11/12/2021 7:25 PM CDT 11/12/2021 7:30 PM CDT Leno Sprague MD LAB - HEMATOLOGY ORD ERABLES [address] [address], [place] [phone] * PTT [facility] (11/12/2021 7:25 PM CDT) APTT 30.6 23.0 - 38.4 Seconds 11/12/2021 7:45 PM CDT [facility] Comment:Suggested therapeuti c range for full dose I.V. unfractionated heparin therapy for venous thromboembolism is 71 to 109 seconds. Blood BLOOD SPECIMEN / Unknown Venipuncture / Unknown 11/12/2021 7:25 PM CDT 11/12/2021 7:36 PM CDT Leno Sprague MD LAB - COAGULATION OR DERABLES [address] [address], [place] [phone] * PT-INR [facility] (11/12/2021 7:25 PM CDT) Pathologist [facility] PT 12.2 12.1 - 14.8 Seconds 11/12/2021 7:44 PM CDT [facility] INR 0.9 See Comment 11/12/2021 7:44 PM CDT [facility] Comment:The suggested therap eutic range for standard coumadin (warfarin) therapy is an INR of 2.0-3.0. For high-risk patients (Mechanical Mitral Valve Prosthesis, etc.), the suggested prophylactic therapeutic range is an INR of 2.5-3.5. Blood BLOOD SPECIMEN / Unknown Venipuncture / Unknown 11/12/2021 7:25 PM CDT 11/12/2021 7:36 PM CDT Leno Sprague MD LAB - COAGULATION OR DERABLES Performing Organization Address City/[facility]/ZIP Co de Phone Number [address] [address], [place] [phone] * TYPE + SCREEN PANEL (11/12/2021 7:25 PM CDT) Pathologist [facility] Antibody Screen NEG 8:12 PM CDT [facility] ABO Rh O POS 11/12/2021 8:12 PM CDT [facility] Blood Bank BLOOD SPECIMEN / Unknown Venipuncture / Unknown 11/12/2021 7:25 PM CDT 11/12/2021 7:33 PM CDT Leno Sprague MD LAB - BLOOD BANK ORD ERABLES [facility] [address] [place] [address], [place] [phone] * (ABNORMAL) CBC W AUTO DIFFERENTIAL (11/12/2021 7:25 PM CDT) Pathologist [facility] WBC 7.5 3.5 - 10.5 10 3/uL 11/12/2021 7:36 PM CDT [facility] RBC 4.56 3.80 - 5.20 10 6/uL 11/12/2021 7:36 PM [facility] Hemoglobin 13.3 12.0 - 15.6 g/dL 11/12/2021 7:36 PM [facility] Hematocrit 38.8 35.0 - 45.0 % 11/12/2021 7:36 PM [facility] MCV 85.1 80.7 - 98.3 fL 11/12/2021 7:36 PM [facility] MCH 29.2 26.7 - 34.0 pg 11/12/2021 7:36 PM [facility] MCHC 34.3 30.8 - 35.9 g/dL 11/12/2021 7:36 PM [facility] Platelet Count 313 150 - 400 10 3/uL 11/12/2021 7:36 PM [facility] RDW-SD 38.5 36.0 - 50.0 fL 11/12/2021 7:36 PM [facility] RDW-CV 12.6 11.2 - 14.8 % 11/12/2021 7:36 PM [facility] MPV 9.4 9.4 - 12.9 fL 11/12/2021 7:36 PM [facility] nRBC Absolute 0.00 0 10 3/uL 11/12/2021 7:36 PM [facility] nRBC Auto 0.0 0 /100 WBC 11/12/2021 7:36 PM [facility] Neutrophils % 59.3 35.0 - 70.0 % 11/12/2021 7:36 PM [facility] Lymphocytes % 26.5 20.0 - 43.0 % 11/12/2021 7:36 PM [facility] Monocytes % 5.2 5.0 - 13.0 % 11/12/2021 7:36 PM [facility] Eosinophils % 8.0(H) 0.0 - 6.0 % 11/12/2021 7:36 PM [facility] Basophil % 0.7 0.0 - 2.0 % 11/12/2021 7:36 PM [facility] Neutrophils Absolute 4.45 1.60 - 7.00 10 3/uL 11/12/2021 7:36 PM [facility] Lymphocyte Absolute 1.99 1.10 - 3.90 10 3/uL 11/12/2021 7:36 PM T [facility] Monocytes Absolute 0.39 0.26 - 1.07 10 3/uL 11/12/2021 7:36 PM [facility] Eosinophils Absolute 0.60(H) 0.00 - 0.47 10 3/uL 11/12/2021 7:36 PM T [facility] Basophils Absolute 0.05 0.00 - 0.08 10 3/uL 11/12/2021 7:36 PM [facility] Immature Granulocytes % 0.3 0.0 - 1.0 % 11/12/2021 7:36 PM [facility] Immature Granulocytes Absolute 0.02 11/12/2021 7:36 PM [facility] Blood BLOOD SPECIMEN / Unknown Venipuncture / Unknown 11/12/2021 7:25 PM CDT 11/12/2021 7:31 PM CDT Leno Sprague MD LAB - HEMATOLOGY ORD ERABLES [facility] [address] [place] [phone], [facility] [phone] * (ABNORMAL) BASIC METABOLIC PANEL (CALCIUM TOTAL) (11/12/2021 7:25 PM CDT) BUN 12 7 - 26 mg/dL 11/12/2021 7:58 PM [facility] Creatinine 0.81 0.56 - 0.96 mg/dL 11/12/2021 7:58 PM [facility] Sodium 142 136 - 145 mmol/L 11/12/2021 7:58 PM [facility] Potassium 3.6 3.5 - 4.5 mmol/L 11/12/2021 7:58 PM [facility] Chloride 108(H) 98 - 107 mmol/L 11/12/2021 7:58 PM [facility] CO2 25 22 - 29 mmol/L 11/12/2021 7:58 PM CDT [facility] Glucose 108 70 - 115 mg/dL 11/12/2021 7:58 PM CDT [facility] Calcium 9.2 8.4 - 10.2 mg/dL 11/12/2021 7:58 PM CDT [facility] Anion Gap 13 8 - 18 11/12/2021 7:58 PM CDT [facility] BUN/Creatinine Ratio 15 7 - 23 11/12/2021 7:58 PM CDT [facility] Osmolality Calculated 294 270 - 300 mOsm/kg 11/12/2021 7:58 PM T [facility] eGFR by CKD-EPI 90 >=90 mL/min/1.7 3 m2 11/12/2021 7:58 PM CDT [facility] Blood BLOOD SPECIMEN / Unknown Venipuncture / Unknown 11/12/2021 7:25 PM CDT 11/12/2021 7:31 PM CDT Leno Sprague MD LAB - CHEMISTRY SHEA GIBSON Performing Organization Address [facility]/ZIP Co de Phone Number [address] [address], [place] [phone] * HCG BETA BLOOD QUANTITATIVE (11/12/2021 7:25 PM CDT) Pathologist [facility] Beta-hCG Total Quantitative <3 <5 mIU/mL 11/12/2021 8:04 PM CDT [facility] Comment: This assay is cleared for use in the early detection of only. It is not approved for any other uses such as tumor marker screening, tumor marker monitoring, etc. and should not be used for any other purposes. HCG Numeric Result Interpretation: Non- Females: < 5 mIU/mL Post-Menopausal Females: < 7 mIU/mL Blood BLOOD SPECIMEN / Unknown Venipuncture / Unknown 11/12/2021 7:25 PM CDT 11/12/2021 7:31 PM CDT Leno Sprague MD LAB - CHEMISTRY SHEA GIBSON Performing Organization Address [facility]/ZIP Co de Phone Number [address] [address], [place] [phone] * ALCOHOL ETHYL BLOOD (11/12/2021 7:25 PM CDT) Ethanol (mg/dL) <10 <10 mg/dL 7:58 PM CDT [facility] Ethanol Calculated (g/dL) <0.010 <0.010 g/dL 11/12/2021 7:58 PM CDT [facility] Blood BLOOD SPECIMEN / Unknown Venipuncture / Unknown 11/12/2021 7:25 PM CDT 11/12/2021 7:31 PM CDT Narrative [facility] - 11/12/2021 7:58 PM CDT Ethanol Interp <10: None Detected. Depression of PALM AND BACK FORGER: >100 mg/dl Potentially Critical: >250 mg/dl Potentially Fatal >400 mg/dl Ethanol in the patient's blood will contribute to the osmolar gap. Ethanol's contribution to the osmolar gap can be estimated by dividing the concentration of ethanol in mg/dL by 4.6. This test is for clinical use only and does not equal a RUDY for legal purposes. Leno Sprague MD LAB - CHEMISTRY SHEA GIBSON [facility] Organization Address City/State/ZIP Co de Phone Number [facility] [address] [place] [address], [facility] [phone] Care Teams [employer]ine [employer]er Relationship Specialty Start Date End Date Joanne Alvarez MD [address] [place] [phone] PCP - General Family Medicine 11/12/21
--- OUTSIDE RECORDS SUMMARY | 2024-07-18 11:52 | XMS_ITS | Referral Summary ---
Author Organization [facility] Address [address] [place] [address] Care Team Providers Care Resourcing Advisor Name Role Phone Joanne Alvarez MD Primary Care Provider [phone] Source Comments [facility],non-owned Affiliates and Associated Physician Practices is amultiple site organization consisting of ambulatory clinics and hospital sitesin [place], [place], [place] and [place]. This disclosure is being madepursuant to the Care Everywhere program and may not contain all information available regarding this patient. Last updated 18.[facility] [employer] Allergies Active Allergy Reactions Criticality Noted Date Comments Morphine Nausea and/or Vomiting 11/12/2021 Medications * Be aware that medications may not be up to date on this document. Alwaysverify current medications with the patient. Medication Sig Dispensed Refills Start Date End Date Status celecoxib (CeleBREX) 200 MG capsule 11/28/2021 Active gabapentin (Neurontin) 600 MG tablet 01/30/2022 Active baclofen (Lioresal) 10 MG tablet 01/02/2022 Active levothyroxine (Synthroid) 75 MCG tablet 11/28/2021 Active Social History Tobacco Use Types Packs/Day Years [...] Mass Index 34.33 02/05/2022 10:50 AM CDT Plan of Treatment Not on file Procedures Procedure Name Priority Date/Time Associated Diagnosis Comments BASIC METABOLIC PANEL (CALCIUM TOTAL) STAT 11/12/2021 7:25 PM CDT from Last 3 Months or Most Recently Relevant to Health Maintenance Results * (ABNORMAL) BASIC METABOLIC PANEL (CALCIUM TOTAL) (11/12/2021 7:25 PM CDT) BUN 12 7 - 26 mg/dL 11/12/2021 7:58 PM [facility] Creatinine 0.81 0.56 - 0.96 mg/dL 11/12/2021 7:58 PM [facility] Sodium 142 136 - 145 mmol/L 11/12/2021 7:58 PM [facility] Potassium 3.6 3.5 - 4.5 mmol/L 11/12/2021 7:58 PM [facility] Chloride 108(H) 98 - 107 mmol/L 11/12/2021 7:58 PM [facility] CO2 25 22 - 29 mmol/L 11/12/2021 7:58 PM [facility] Glucose 108 70 - 115 mg/dL 11/12/2021 7:58 PM [facility] Calcium 9.2 8.4 - 10.2 mg/dL 11/12/2021 7:58 PM [facility] Anion Gap 13 8 - 18 11/12/2021 7:58 PM [facility] BUN/Creatinine Ratio 15 7 - 23 11/12/2021 7:58 PM [facility] Osmolality Calculated 294 270 - 300 mOsm/kg 11/12/2021 7:58 PM [facility] eGFR by CKD-EPI 90 >=90 mL/min/1.7 3 m2 11/12/2021 7:58 PM CDT [facility] Blood BLOOD SPECIMEN / Unknown Venipuncture / Unknown 11/12/2021 7:25 PM CDT 11/12/2021 7:31 PM CDT Leno Sprague MD LAB - CHEMISTRY SHEA Peguero Organization Address City/State/ZIP Co de Phone Number [facility] [address] [place] [address], [place] [phone] from Last 3 Months or Most Recently Relevant to Health Maintenance Care Teams Resourcing Advisor Relationship Specialty Start Date End Date Joanne Alvarez MD [address] [place] [phone] PCP - General Family Medicine 11/12/21
--- OUTSIDE RECORDS SUMMARY | 2024-07-18 11:52 | XMS_ITS | Clinical Summary ---
Author Organization [facility] Address [address] [place] [address] Care Team Providers Care Labelling Machine Operator Name Role Phone Joanne Alvarez MD Primary Care Provider [phone] Source Comments [facility],non-owned Affiliates and Associated Physician Practices is amultiple site organization consisting of ambulatory clinics and hospital sitesin [place], [place], [place] and [place]. This disclosure is being madepursuant to the Care Everywhere program and may not contain all information available regarding this patient. Last updated 18.[facility] [employer] Allergies Active Allergy Reactions Criticality Noted Date [...] 02/05/2022 10:50 AM CDT Plan of Treatment Health Maintenance Due Date Last Done Comments COLOGUARD (AGES 45-75) - COL ON CA SCREENING 1974 COLON MONITORING 1974 COLONOSCOPY - COLON CA SCREENING 1974 CT COLONOGRAPHY - COLON CA SCREENING 1974 Colorectal Cancer Screening 1974 FIT - COLON CA SCREENING 1974 FLEX SIG - COLON CA SCREENING 1974 LIPID TESTING 1974 MAMMOGRAM 1974 PAP SMEAR 1974 HIV SCREENING 1989 HEPATITIS C SCREENING 07/31/1992 DTAP/TDAP/TD VACCINES (1 - Tdap) 1993 HEPATITIS B VACCINE (1 of 3 - 19+ 3-dose series) 1993 COVID-19 VACCINE (2023-2 5 season) 2024 INFLUENZA VACCINE (#1) 2024 DEPRESSION SCREENING 05/25/2024 ZOSTER VACCINE (1 of 2) 2024 SCREENING FOR DIABETES 11/12/2024 11/12/2021 HIB VACCINE Aged Out No longer eligi ble based on patient's age to complete this topic HPV VACCINE Aged Out No longer eligi ble based on patient's age to complete this topic MENINGOCOCCAL (Group B) VACCINE Aged Out No longer eligible based on patient's age to complete this topic MENINGOCOCCAL VACCINE Aged Out No prema sharad eligible based on patient's age to complete this topic PNEUMOCOCCAL VACCINE Aged Out No long er eligible based on patient's age to complete this topic Procedures Procedure Name Priority Date/Time Associated Diagnosis Comments BASIC METABOLIC PANEL (CALCIUM TOTAL) STAT 11/12/2021 7:25 PM CDT from Last 3 Months or Most Recently Relevant to Health Maintenance Results * (ABNORMAL) BASIC METABOLIC PANEL (CALCIUM TOTAL) (11/12/2021 7:25 PM CDT) BUN 12 7 - 26 mg/dL 11/12/2021 7:58 PM [facility] Creatinine 0.81 0.56 - 0.96 mg/dL 11/12/2021 7:58 PM [facility] Sodium 142 136 - 145 mmol/L 11/12/2021 7:58 PM [facility] Potassium 3.6 3.5 - 4.5 mmol/L 11/12/2021 7:58 PM [facility] Chloride 108(H) 98 - 107 mmol/L 11/12/2021 7:58 PM [facility] CO2 25 22 - 29 mmol/L 11/12/2021 7:58 PM [facility] Glucose 108 70 - 115 mg/dL 11/12/2021 7:58 PM [facility] Calcium 9.2 8.4 - 10.2 mg/dL 11/12/2021 7:58 PM [facility] Anion Gap 13 8 - 18 11/12/2021 7:58 PM [facility] BUN/Creatinine Ratio 15 7 - 23 11/12/2021 7:58 PM [facility] Osmolality Calculated 294 270 - 300 mOsm/kg 11/12/2021 7:58 PM [facility] eGFR by CKD-EPI 90 >=90 mL/min/1.7 3 m2 11/12/2021 7:58 PM [facility] Blood BLOOD SPECIMEN / Unknown Venipuncture / Unknown 11/12/2021 7:25 PM CDT 11/12/2021 7:31 PM T Leno Sprague MD LAB - CHEMISTRY SHE[facility] Organization Address City/State/ZIP Co de Phone Number [facility] [address] [place] [address], [facility] [phone] from Last 3 Months or Most Recently Relevant to Health Maintenance Care Teams Labelling Machine Operator Relationship Specialty Start Date End Date Joanne Alvarez MD [address] [place] [id number] PCP - General Family Medicine 11/12/21
--- NOTE | 2024-07-18 13:25 | WPDPFTINT ---
PFT Procedure Performed PFT Procedure Performed Spirometry with Pre/Post Bronchodilator Plethysmography (Lung Vol) Flow Vol Loop Spirometry w/o Bronchodil PFT Interpretation Lung volumes were measured with the body plethysmography method. The diminished expiratory reserve volume could be due to obesity. The remaining lung volumes are unremarkable. Spirometry showed normal expiratory flow rates and a normal FEV1 to FVC ratio of 76%. Following administration of a bronchodilator there was no significant increase in expiratory flow rates. Lung diffusion capacity was not measured. The flow-volume loop is unremarkable. Impression: Spirometry, and lung volumes within the normal range.
--- NOTE | 2024-07-18 13:27 | WPDSIXMINUTE ---
Six Minute Walk Procedure Procedure Performed Pulmonary Stress Test (6 min walk) Six Minute Walk Six Minute Walk: This 6 minute walk test was carried out with the patient breathing ambient air. The pre walk oxyhemoglobin saturation was 98%. The patient walked 152 m with no stops during testing. During the walk the oxyhemoglobin saturation remained in the range of 93-98%. Notably the patient used personal cane for walking. Impression: Overall, limited distance walked but no evidence of oxyhemoglobin desaturation on this testing.
== END 2024-07-18 10:31 | disposition home or self-care (01) ==
PROVIDERS: Visit Provider Physician Assistant
DX: R06.09 Other forms of dyspnea (principal)
CPT/HCPCS: 94060; 94726; 94729